=== PATIENT | male | born 1960 | race Two or more races ===

== ENCOUNTER 2018-07-02 03:22 | Inpatient (IN) | payer OTHER ==
[~2018-07-02] VITALS: Ht 172.7 cm; Wt 88.5 kg
[2018-07-02] VITALS (16 sets, daily range): BP systolic 149–189; BP diastolic 85–110
--- NOTE | 2018-07-02 03:27 | NUR ---
ED Nurse Note: Patient GABRIELLA RA 31 from home c/o upper adbominal pain for 5x days that became unbearable 2x hours ago. pt complaining of 10/10 pain on epigastric area. pt denies vomiting, denies hx of copd and asthma. ermd on bedside. pt admitted drug use in the past. pt hooked on monitor with vs within normal limits. will continue to monitor
--- NOTE | 2018-07-02 03:40 | Emergency Room Report ---
History of Present Illness General Chief Complaint: Abdominal Pain Source: Patient Present Illness HPI Is a 58-year-old male with history of methamphetamine abuse. He presents with chief complaint of epigastric abdominal pain. Onset for last 5 days but it was mild. The last few hours became severe. Pain is localized to the upper quadrants. No nausea no vomiting. Pain is 10 out of 10. Worse with movement. Nothing made it better. Nothing made it worse. No diarrhea. No fever. No trauma. Allergies: Coded Allergies: No Known Allergies (Unverified , 07/02/18) Patient History Past Medical History: none, see triage record, old chart reviewed Past Surgical History: none Pertinent Family History: none Social History: Reports: smoking, drug use - Methamphetamine Immunizations: other Reviewed Nursing Documentation: PMH: Agreed; PSxH: Agreed Nursing Documentation-PMH Past Medical History: No History, Except For Hx Hypertension: Yes Review of Systems Eye: Denies: eye pain, blurred vision ENT: Denies: ear pain, nose congestion, throat swelling Respiratory: Denies: cough, shortness of breath Cardiovascular: Denies: chest pain, palpitations Gastrointestinal: Reports: abdominal pain; Denies: diarrhea, vomiting Musculoskeletal: Denies: back pain, joint pain Skin: Denies: rash Neurological: Denies: headache, numbness Endocrine: Denies: increased thirst, increased urine Hematologic/Lymphatic: Denies: easy bruising All Other Systems: negative except mentioned in HPI Physical Exam Vital Signs Date Time Temp Pulse Resp B/P (MAP) Pulse Ox O2 Delivery O2 Flow Rate FiO2 07/02/18 03:23 97.5 94 24 156/93 97 Room Air vitals with high blood pressure Sp02 EP Interpretation: reviewed, normal General Appearance: well appearing, no apparent distress, alert Head: normocephalic, atraumatic Eyes: bilateral eye PERRL, bilateral eye EOMI ENT: hearing grossly normal, normal pharynx Neck: full range of motion, supple, no meningismus Respiratory: chest non-tender, lungs clear, normal breath sounds Cardiovascular #1: regular rate, rhythm, no murmur Gastrointestinal: normal bowel sounds, no mass, no organomegaly, no bruit, non- distended, tenderness - Diffuse Musculoskeletal: back normal, gait/station normal, normal range of motion Psychiatric: mood/affect normal Skin: warm/dry Medical Decision Making Diagnostic Impression: Primary Impression: Perforated gastric ulcer Qualified Codes: K25.1 - Acute gastric ulcer with perforation Additional Impression: Methamphetamine abuse ER Course Patient presents with abdominal pain secondary to perforated gastric ulcer. Antibiotic started. Proton pump inhibitor also given. Vital signs stable. We will admit versus transfer based on insurance. Pt will be admitted here. I contacted Dr. William for admission and Dr. Del Real for surgerical consult. Laboratory Tests Test 07/02/18 03:36 White Blood Count 10.0 K/UL (4.8-10.8) Red Blood Count 5.60 M/UL (4.70-6.10) Hemoglobin 17.1 G/DL (14.2-18.0) Hematocrit 51.4 % (42.0-52.0) Mean Corpuscular Volume 92 FL (80-99) Mean Corpuscular Hemoglobin 30.5 PG (27.0-31.0) Mean Corpuscular Hemoglobin Concent 33.2 G/DL (32.0-36.0) Red Cell Distribution Width 12.6 % (11.6-14.8) Platelet Count 272 K/UL (150-450) Mean Platelet Volume 8.7 FL (6.5-10.1) Neutrophils (%) (Auto) 67.2 % (45.0-75.0) Lymphocytes (%) (Auto) 24.8 % (20.0-45.0) Monocytes (%) (Auto) 6.5 % (1.0-10.0) Eosinophils (%) (Auto) 0.8 % (0.0-3.0) Basophils (%) (Auto) 0.7 % (0.0-2.0) Prothrombin Time 10.2 SEC (9.30-11.50) Prothromb Time International Ratio 1.0 (0.9-1.1) Activated Partial Thromboplast Time 28 SEC (23-33) Sodium Level 138 MMOL/L (136-145) Potassium Level 4.4 MMOL/L (3.5-5.1) Chloride Level 101 MMOL/L (98-107) Carbon Dioxide Level 28 MMOL/L (21-32) Anion Gap 9 mmol/L (5-15) Blood Urea Nitrogen 16 mg/dL (7-18) Creatinine 1.1 MG/DL (0.55-1.30) Estimat Glomerular Filtration Rate > 60 mL/min (>60) Glucose Level 109 MG/DL (74-106) H Calcium Level 9.2 MG/DL (8.5-10.1) Total Bilirubin 0.6 MG/DL (0.2-1.0) Aspartate Amino Transf (AST/SGOT) 32 U/L (15-37) Alanine Aminotransferase (ALT/SGPT) 23 U/L (12-78) Alkaline Phosphatase 86 U/L (46-116) Total Protein 7.7 G/DL (6.4-8.2) Albumin 3.4 G/DL (3.4-5.0) Globulin 4.3 g/dL Albumin/Globulin Ratio 0.8 (1.0-2.7) L Lipase 185 U/L (73-393) Lab Results Impression labs normal Rhythm Strip Diag. Results Rhythm Strip Time: 05:04 EP Interpretation: yes Rate: 88 Rhythm: NSR, no PVC's, no ectopy CT/MRI/US Diagnostic Results CT/MRI/US Diagnostic Results : Imaging Test Ordered: CT abdomen and pelvis Impression Read by radiologist. Inflammatory changes around the gastric antrum suggestive of gastritis. Small foci of intra-abdominal free air from perforation from gastric ulcer. Last Vital Signs Date Time Temp Pulse Resp B/P (MAP) Pulse Ox O2 Delivery O2 Flow Rate FiO2 07/02/18 03:23 97.5 94 24 156/93 97 Room Air Status: improved Disposition: ADMITTED INPATIENT Condition: Serious Scripts Unable to Obtain Active Prescriptions or Reported Meds Referrals: NIVIA MARK,REFERRING (PCP) Joao Wilcox MD Jul 02, 2018 03:40
[2018-07-02] MEDS ORDERED: Morphine Sulfate 4mg/ml Inj (IV/IM USE ONLY) IVP ONE (03:45)
[2018-07-02] MEDS ORDERED: Pantoprazole Inj IV ONE (03:45)
[2018-07-02 03:49] LABS: BASOPHILS % (AUTO) 0.7 % (0.0-2.0); EOSINOPHILS % (AUTO) 0.8 % (0.0-3.0); HEMATOCRIT 51.4 % (42.0-52.0); HEMOGLOBIN 17.1 G/DL (14.2-18.0); LYMPHOCYTES % (AUTO) 24.8 % (20.0-45.0); MEAN CORPUSCULAR VOLUME 92 FL (80-99); MONOCYTES % (AUTO) 6.5 % (1.0-10.0); NEUTROPHILS % (AUTO) 67.2 % (45.0-75.0); PLATELET COUNT 272 K/UL (150-450); RED CELL DISTRIBUTION WIDTH 12.6 % (11.6-14.8)
[2018-07-02 04:04] LABS: ALANINE AMINOTRANSFERASE 23 U/L (12-78); ALBUMIN 3.4 G/DL (3.4-5.0); ALBUMIN/GLOBULIN RATIO 0.8 (1.0-2.7); ALKALINE PHOSPHATASE 86 U/L (46-116); ANION GAP 9 mmol/L (5-15); ASPARTATE AMINO TRANSFERASE 32 U/L (15-37); BILIRUBIN,TOTAL 0.6 MG/DL (0.2-1.0); BLOOD UREA NITROGEN 16 mg/dL (7-18); CALCIUM 9.2 MG/DL (8.5-10.1); CARBON DIOXIDE 28 MMOL/L (21-32); CHLORIDE 101 MMOL/L (98-107); CREATININE 1.1 MG/DL (0.55-1.30); POTASSIUM 4.4 MMOL/L (3.5-5.1); SODIUM 138 MMOL/L (136-145)
--- NOTE | 2018-07-02 04:12 | NUR ---
ED Nurse Note: pt went to ct with tech.
--- NOTE | 2018-07-02 04:20 | NUR ---
ED Nurse Note: pt came back from ct with tech
[2018-07-02] MEDS ORDERED: HYDROmorphone 1mg/ml Carpuject IVP ONE (05:00)
[2018-07-02] MEDS ORDERED: Piperacillin/Tazobactam 3.375 GM in NS 110 ML IVPB ONE (05:00)
[2018-07-02 06:26] LABS: APPEARANCE,URINE CLEAR; BILIRUBIN, URINE NEGATIVE (NEGATIVE); GLUCOSE, URINE (UA) NEGATIVE (NEGATIVE); KETONES,URINE NEGATIVE (NEGATIVE); LEUKOCYTE ESTERASE ,URINE 1+ (NEGATIVE); NITRITE,URINE NEGATIVE (NEGATIVE); PH,URINE 6.5 (4.5-8.0); PROTEIN,URINE 2+ (NEGATIVE); UROBILINOGEN,URINE NORMAL MG/DL (0.0-1.0)
--- NOTE | 2018-07-02 06:37 | NUR ---
ED Nurse Note: pt was admitted in the hospital and is going to or for explore lap, report given to candi serrato.
[2018-07-02 06:51] LABS: COLOR,URINE YELLOW
--- NOTE | 2018-07-02 06:52 | NUR ---
ED Nurse Note: pt transfered to or via gurney picked up by or tech.
[2018-07-02] MEDS ORDERED: LR 1000ml ONE (07:00)
[2018-07-02] MEDS ORDERED: Sterile Water Irrig 1000ml IRRIG ONE (07:00)
[2018-07-02] MEDS ORDERED: NS Irrig 1000ml ONE (07:00)
--- NOTE | 2018-07-02 07:01 | Anethesia Preoperative Eval ---
Anesthesia Pre-op PMH/ROS General Date of Evaluation: Jul 02, 2018 Anesthesiologist: Tawanda ASA Score: ASA 2 - E Mallampati Score Class I : Soft palate, uvula, fauces, pillars visible Class II: Soft palate, uvula, fauces visible Class III: Soft palate, base of uvula visible Class IV: Only hard plate visible Mallampati Classification: Class II Surgeon: Nasima Diagnosis: Perforated gastric ulcer Surgical Procedure: Ex-lap Anesthesia History: none Family History: no anesthesia problems Allergies: Coded Allergies: No Known Allergies (Unverified , 07/02/18) Medications: see eMAR Patient NPO?: Yes NPO Date: Jul 02, 2018 NPO Time: 18:00 Past Medical History Cardiovascular: Reports: HTN; Denies: CAD, CA, valve dz, arrhythmia, other Pulmonary: Denies: asthma, COPD, SHANNON, other Gastrointestinal/Genitourinary: Denies: GERD, CRI, ESRD, other Neurologic/Psychiatric: Denies: dementia, CVA, depression/anxiety, TIA, other Endocrine: Denies: DM, hypothyroidism, steroids, other HEENT: Denies: cataract (L), cataract (R), glaucoma, [place] (L), [place] (R), other Hematology/Immune: Denies: anemia, DVT, bleeding disorder, other Musculoskeletal/Integumentary: Denies: OA, RA, DJD, DDD, edema, other Other: other - methamphetamine use-last used 3 days ago PSxH Narrative: Inguinal hernia repair Anesthesia Pre-op Phys. Exam Physician Exam Last Vital Signs Date Time Temp Pulse Resp B/P (MAP) Pulse Ox O2 Delivery O2 Flow Rate FiO2 07/02/18 06:53 98.0 90 16 149/86 99 Room Air Constitutional: NAD Cardiovascular: RRR Respiratory: CTA Airway Exam Mallampati Score: Class II MO: full ROM: full Teeth: missing - multiple top front, intact Anesthesia Pre-op A/P Labs Hematology Test 07/02/18 03:36 White Blood Count 10.0 K/UL (4.8-10.8) Red Blood Count 5.60 M/UL (4.70-6.10) Hemoglobin 17.1 G/DL (14.2-18.0) Hematocrit 51.4 % (42.0-52.0) Mean Corpuscular Volume 92 FL (80-99) Mean Corpuscular Hemoglobin 30.5 PG (27.0-31.0) Mean Corpuscular Hemoglobin Concent 33.2 G/DL (32.0-36.0) Red Cell Distribution Width 12.6 % (11.6-14.8) Platelet Count 272 K/UL (150-450) Mean Platelet Volume 8.7 FL (6.5-10.1) Neutrophils (%) (Auto) 67.2 % (45.0-75.0) Lymphocytes (%) (Auto) 24.8 % (20.0-45.0) Monocytes (%) (Auto) 6.5 % (1.0-10.0) Eosinophils (%) (Auto) 0.8 % (0.0-3.0) Basophils (%) (Auto) 0.7 % (0.0-2.0) Coagulation Test 07/02/18 03:36 Prothrombin Time 10.2 SEC (9.30-11.50) Prothromb Time International Ratio 1.0 (0.9-1.1) Activated Partial Thromboplast Time 28 SEC (23-33) Chemistry Test 07/02/18 03:36 Sodium Level 138 MMOL/L (136-145) Potassium Level 4.4 MMOL/L (3.5-5.1) Chloride Level 101 MMOL/L (98-107) Carbon Dioxide Level 28 MMOL/L (21-32) Anion Gap 9 mmol/L (5-15) Blood Urea Nitrogen 16 mg/dL (7-18) Creatinine 1.1 MG/DL (0.55-1.30) Estimat Glomerular Filtration Rate > 60 mL/min (>60) Glucose Level 109 MG/DL (74-106) H Calcium Level 9.2 MG/DL (8.5-10.1) Total Bilirubin 0.6 MG/DL (0.2-1.0) Aspartate Amino Transf (AST/SGOT) 32 U/L (15-37) Alanine Aminotransferase (ALT/SGPT) 23 U/L (12-78) Alkaline Phosphatase 86 U/L (46-116) Total Protein 7.7 G/DL (6.4-8.2) Albumin 3.4 G/DL (3.4-5.0) Globulin 4.3 g/dL Albumin/Globulin Ratio 0.8 (1.0-2.7) L Lipase 185 U/L (73-393) Studies Pre-op Studies: EKG - sr Risk Assessment & Plan Assessment: ASA IIE Plan: GA with RSI Status Change Before Surgery: No Pre-Antibiotics Drug: Ancef 2g Given Within 1 Hr of Incision: Yes Eva Ellsworth MD Jul 02, 2018 07:01
[2018-07-02] MEDS ORDERED: LR 1000ml 1,000 ML IVLG SCH (07:16)
--- NOTE | 2018-07-02 07:18 | Pre-Procedure Note/Attestation ---
Pre-Procedure Note/Attestation Complete Prior to Procedure Planned Procedure: not applicable Procedure Narrative: exploratory laparotomy Indications for Procedure Pre-Operative Diagnosis: perforated hollow viscus Attestation I attest that I discussed the nature of the procedure; its benefits; risks and complications; and alternatives (and the risks and benefits of such alternatives ), prior to the procedure, with the patient (or the patient's legal territory service representative). I attest that, if there was a reasonable possibility of needing a blood transfusion, the patient (or the patient's legal territory service representative) was given the [facility] standardized written summary, pursuant to the Dean Olga Lidia Blood Safety Act ([place] Health and Safety Code # 1645, as amended). I attest that I re-evaluated the patient just prior to the surgery and that there has been no change in the patient's H&P, except as documented below: Alo Del Real MD Jul 02, 2018 07:18
[2018-07-02] MEDS ORDERED: Midazolam 2mg/2ml Inj ONE (07:23)
[2018-07-02] MEDS ORDERED: fentaNYL 100 mcg/2 mL IV ONE (07:23)
[2018-07-02] MEDS ORDERED: Lidocaine 1% MPF 10mg/ml 5ml ONE (07:23)
[2018-07-02] MEDS ORDERED: Propofol 200mg/20ml IV ONE (07:23)
[2018-07-02] MEDS ORDERED: Bacitracin 50000 Units Vial ONE (07:29)
[2018-07-02] MEDS ORDERED: NeoSporin Gu Irrig 1ml Amp IRRIG ONE (07:29)
[2018-07-02] MEDS ORDERED: Metoclopramide 10mg/2ml Inj IVP PRN ×3 (07:30→09:00)
[2018-07-02] MEDS ORDERED: fentaNYL 100 mcg/2 mL IV PRN (07:30)
[2018-07-02] MEDS ORDERED: Ketorolac 30mg Inj IV PRN (07:30)
[2018-07-02] MEDS ORDERED: NS Irrig 2000ml IRRIG ONE (07:55)
[2018-07-02] MEDS ORDERED: Glycopyrrolate 0.2mg/ml 1ml Vial ONE (08:32)
[2018-07-02] MEDS ORDERED: Ketorolac 30mg Inj ONE (08:32)
[2018-07-02] MEDS ORDERED: Metoclopramide 10mg/2ml Inj ONE (08:32)
[2018-07-02] MEDS ORDERED: Dexamethasone 4mg/ml vial ONE (08:32)
[2018-07-02] MEDS ORDERED: D5 1/2NS w/KCl 20mEq 1,000 ML IV SCH (08:40)
--- NOTE | 2018-07-02 08:40 | Brief Operative Note ---
Immediate Post Operative Note Operative Note Pre-op Diagnosis: perforated hollow viscus Post-op Diagnosis: perforated duodenal ulcer Post-op Diagnosis: same as pre-op Surgeon: MD Domitila Teaching Dietitian: None Anesthesiologist: Dr. Neff Anesthesia: general Specimen: none Complications: none Condition: stable Fluids: per anesthesialogist Estimated Blood Loss: minimal Drains: other - cullen Implant(s) used?: No Alo Del Real MD Jul 02, 2018 08:40
--- NOTE | 2018-07-02 08:44 | Consultation ---
DATE OF CONSULTATION: 07/02/2018 PREOPERATIVE CONSULTATION CONSULTING PHYSICIAN: Alo Del Real M.D. REQUESTING PHYSICIAN: Emergency room physician. REASON FOR CONSULTATION: Abdominal pain. HISTORY OF PRESENT ILLNESS: This is a 58-year-old male, who presented to emergency room complaining of abdominal pain since 2 o'clock this morning. The pain was located at the epigastrium and upper abdomen. It has been associated with nausea and vomiting. He stated that for four or five days he had mild pain at the upper abdomen and suddenly developed severe pain and he had a normal bowel movement yesterday. PAST MEDICAL HISTORY: He denies allergies, asthma, diabetes, cardiac and renal diseases. He has a history of hypertension. PAST SURGICAL HISTORY: Include right inguinal herniorrhaphy, and incision and drainage of the abscess on the right side of the face. MEDICATIONS: Please see the medicine reconciliation form. SOCIAL HISTORY: The patient is a 58-year-old male, who is single with four children. He smokes a few cigarettes a day, but denies drinking. He has a history of methamphetamine abuse. REVIEW OF SYSTEMS: Noncontributory. PHYSICAL EXAMINATION: GENERAL: The patient appeared to be a well-developed, well-nourished, 58-year-old male, lying on the gurney, complaining of abdominal pain. HEENT: Head is normocephalic and atraumatic. Eyes, pupils are equal, round, and reactive to light. Mouth is clear. NECK: There is no palpable thyromegaly or adenopathy. CHEST: Clear to auscultation and percussion. HEART: There is no gallop or murmur. S1 and S2 are within normal limits. ABDOMEN: Flat with tenderness, rebound tenderness, and guarding at the upper abdomen. Bowel sounds are hypoactive. GENITALIA: Normal. The patient is status post right inguinal herniorrhaphy. EXTREMITIES: Within normal limits. LABORATORY AND IMAGING DATA: CBC is within normal limits. Chemistry is normal. CT scan of the abdomen has been interpreted as perforated hollow viscus with free air in the abdomen probably an ulcer. ASSESSMENT: Acute abdomen due to the perforated hollow viscus. PLAN: The patient has been scheduled for exploratory laparotomy. The risks and benefits have been explained to him. He understood and granted the consent. Alo Del Real M.D. DR: CARLITO JOB#: [id number] CC: NERI
[2018-07-02] MEDS ORDERED: HYDROmorphone 1mg/ml Carpuject IVP PRN (08:45)
[2018-07-02] MEDS ORDERED: Hydromorphone 0.5mg/0.5ml inj IVP PRN ×2 (08:45→09:00)
[2018-07-02] MEDS ORDERED: Acetaminophen 650 MG SUPP RECTAL PRN ×2 (08:45→09:00)
[2018-07-02] MEDS: Midazolam 2mg/2ml Inj IVP PRN ×2 (08:55→09:11)
--- NOTE | 2018-07-02 08:56 | Immediate Post-Op Evaluation ---
Immediate Post-Op Evalulation Immediate Post-Op Evalulation Procedure: Ex-lap Date of Evaluation: Jul 02, 2018 Time of Evaluation: 08:53 IV Fluids: 0 Blood Products: 0 Estimated Blood Loss: 50 Urinary Output: 225 Blood Pressure Systolic: 153 Blood Pressure Diastolic: 85 Pulse Rate: 80 Respiratory Rate: 17 O2 Sat by Pulse Oximetry: 100 Temperature (Fahrenheit): 97.4 Pain Score (1-10): 0 Nausea: No Vomiting: No Complications 0 Patient Status: awake, reacts, patent, none Hydration Status: adequate Drug: Ancef 2g Given Within 1 Hr of Incision: Yes Time Given: 07:20 Eva Ellsworth MD Jul 02, 2018 08:56
[2018-07-02] MEDS ORDERED: Enoxaparin 40mg Inj SUBQ SCH (09:00)
[2018-07-02] MEDS: LORazepam Inj 2mg/ml 1ml IV PRN ×2 (09:04→09:19)
[2018-07-02] MEDS: Hydromorphone 0.5mg/0.5ml inj IVP PRN ×2 (09:06→09:28)
[2018-07-02] MEDS: DiphenhydrAMINE 50mg/ml Inj IVP PRN ×2 (09:21→09:22)
--- NOTE | 2018-07-02 09:47 | Diagnostic Imaging Report ---
Indication: Abdominal pain Technique: Spiral acquisitions obtained through the abdomen and pelvis. No oral contrast utilized, per emergency room physician request No IV contrast utilized, per emergency room physician request.. Multiplanar reconstructions were generated. Total dose length product 818.78 mGycm. CTDIvol(s) 15.47 mGy. Dose reduction achieved using automated exposure control Comparison: None Findings: Bubbles of free intraperitoneal gas are seen adjacent to the left hepatic lobe and caudate lobe of the liver and adjacent to the gallbladder. A few bubbles are seen immediately adjacent to the gastric antrum. There is mild wall thickening and very slight inflammatory change surrounding the gastric antrum. Trace free fluid is seen over the dome of the liver The appendix is normal. There is colonic diverticulosis. No evidence of diverticulitis. There is a small to moderate sliding-type hiatal hernia. The remainder of the stomach is unremarkable. The duodenum is mildly distended with fluid. No small bowel distention. There are small bilateral fat-containing inguinal hernias. Lack of IV contrast limits assessment of the solid organs. The liver, gallbladder, bile ducts, pancreas, spleen are unremarkable. 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 The adrenals and kidneys are unremarkable. No retroperitoneal or mesenteric mass or adenopathy. No pelvic mass or adenopathy. Prostate is somewhat prominent. The included lung bases are clear. The bones demonstrate degenerative spondylosis changes. Impression: Wall thickening and mild inflammatory changes related to the gastric antrum. Bubbles of intraluminal gas are seen adjacent to the gastric antrum as well as trace free fluid. Findings are suggestive of perforated gastric ulcer. Small to moderate sliding-type hiatal hernia Colonic diverticulosis. No evidence of diverticulitis. Calcified 12 mm splenic arterial aneurysm Mild prostatomegaly. Degenerative spondylosis Incidental finding of small fat-containing bilateral inguinal hernias. This agrees with the preliminary interpretation provided overnight by [facility] teleradiology service. The CT scanner at [facility] is accredited by the [employer] and the scans are performed using protocols designed to limit radiation exposure to as low as reasonably achievable to attain images of sufficient resolution adequate for diagnostic evaluation.
--- NOTE | 2018-07-02 11:00 | NUR ---
NURSE NOTES: Received report from RADHA Dennis RN. Pt in bed, asleep, respiration unlabored, on 3l NC, NGT in place at 78 cm connected to low intermitted suction by MARA Dennis, vitals obtained Bp 174/105, HR 103. Vitals are similar to those reported in OR, pt was given Hydralazine in PACU. Will recheck in 30 minutes.
--- NOTE | 2018-07-02 11:28 | NUR ---
NURSE NOTES: Rechecked vitals, BP 166/101 HR 100, SpO2 100% on 3 L NC, RR 16, pt asleep
--- NOTE | 2018-07-02 12:15 | Operative Note - Dictated ---
DATE OF OPERATION: 07/02/2018 PREOPERATIVE DIAGNOSIS: Acute abdomen due to the perforated hollow viscus. POSTOPERATIVE DIAGNOSIS: Perforated duodenal ulcer. OPERATION: Exploratory laparotomy and gastrorrhaphy with Nestor patch. COMPLICATIONS: None. SURGEON: Alo Del Real M.D. EXPLOSIVE ORDNANCE MANAGER: None. ANESTHESIA: General with endotracheal tube. ANESTHESIOLOGIST: Eva Ellsworth M.D. INDICATION: This is a 58-year-old male, who presented to emergency room with acute onset of the abdominal pain since 2 o'clock in the morning. The pain was located at epigastrium associated with nausea and vomiting and the CBC was within normal limits, but the CAT scan was interpreted as microperforation of the ulcer. DESCRIPTION OF PROCEDURE: The patient was placed supine on the operating table and after general anesthesia with endotracheal tube, a midline incision was given above the umbilicus and was carried sharply through subcutaneous tissue, fascia, and peritoneum. The intraperitoneal cavity was entered. The exploration was performed. It was noticed that the patient had a very small perforation at the pylorus. This perforation was repaired with a few interrupted suture of 0 silk. The omentum was anchored over and repaired with Nestor patch. The intra-abdominal cavity was irrigated with antibiotic solution and then a Jose drain was placed under the liver and was brought out from separate stab wound. The incision was approximated with running suture of #0 Vicryl for peritoneum and posterior fascia, #1 Prolene for the fascia, and rm for the skin. The patient tolerated the procedure very well and was transferred to recovery room in stable condition and extubated. The sponge and needle correct. Estimated blood loss was 10 mL. Condition of the patient at the end of procedure was stable. Alo Del Real M.D. DR: ADAM JOB#: [id number] CC: NERI
[2018-07-02] MEDS: Pantoprazole Inj IVP SCH ×2 (12:44→22:08)
[2018-07-02] MEDS: D5 1/2NS w/KCl 20mEq 1,000 ML IV SCH ×2 (12:44→22:09)
[2018-07-02] MEDS: Enoxaparin 40mg Inj SUBQ SCH (12:46)
[2018-07-02] MEDS ORDERED: ceFAZolin sod 2 GM in D5W 110 ML IV SCH (14:00)
[2018-07-02] MEDS: ceFAZolin sod 1 GM in D5W 55 ML IV SCH ×2 (16:02→23:48)
--- NOTE | 2018-07-02 18:13 | NUR ---
NURSE NOTES: Gave pt clonidine 0.1mg SL for SBP >150, Rechecked pt 172/99, Notified Dr. William. Dr. William ordered to give additional dose.
--- NOTE | 2018-07-02 19:20 | NUR ---
HAND-OFF: Report given to MARA Tan. Pt stable.
[2018-07-02] MEDS ORDERED: Flu Vaccine (Alfuria) for Pts Less than 65 Years old IM ONE (20:00)
[2018-07-02] MEDS ORDERED: Pneumococcal Vaccine 25mcg/0.5ml IM ONE (20:00)
--- NOTE | 2018-07-02 20:21 | NUR ---
HAND-OFF: Report given to Na Owens patient in stable condition ..
--- NOTE | 2018-07-02 20:30 | NUR ---
NURSE NOTES: Pt lying in bed w/bed in lowest position and call light within reach. Pt A&Ox4, VSS, and in no apparent distress at this time. IV site intact/asymptomatic w/IVF @ 100 ml/hr; surgical dressing C/D/I; ARASH drain to bulb suction; and GT to low/int suction. Pt has yet to void since FC was removed earlier today; encouraged pt to try to void. Will continue to monitor.
--- NOTE | 2018-07-02 20:45 | NUR ---
NURSE NOTES: Per pt, he takes BP med but cannot recall name of medication. States he will ask roommate to bring in tomorrow in the AM. Will endorse to oncoming nurse.
--- NOTE | 2018-07-02 21:10 | NUR ---
CASE MANAGEMENT: REVIEW 58/M BIBA FROM HOME CC: ABD PAIN SI: PERFORATED DUODENAL ULCER EXPLORATORY LAPAROTOMY AND GASTRORRHAPHY WITH SUSANNAH PATCH 07/02 T 98.0 HR 103 RR 16 BP 174/105 SAT 98% ROOM AIR UA: PROTEIN 2+ BLOOD 4+ LEUKOCYTE 1+ RBC 20-30 IS: NS IVF BOLUS X1 MORPHINE IV X1 DILAUDID IV X1 LACTATED RINGER'S IVF BOLUS X1 VERSED IV X1 INTERQUAL CRITERIA MET: PATIENT ADMITTED TO MED/SURG UNIT 07/02/2018 DCP: PATIENT IS FROM HOME
--- NOTE | 2018-07-02 23:45 | NUR ---
NURSE NOTES: Pt unable to void on his own; performed straight cath per Dr. William which yielded about 500 ml of yellow urine; post-void residual 0 ml per bladder scan. Will continue to monitor.
[2018-07-03] VITALS (7 sets, daily range): BP systolic 145–182; BP diastolic 82–110
--- NOTE | 2018-07-03 02:30 | NUR ---
NURSE NOTES: Pt successfully voided about 350 ml of yellow urine. Will continue monitor.
[2018-07-03] MEDS: HYDROmorphone 1mg/ml Carpuject IVP PRN ×2 (02:42→08:48)
[2018-07-03 07:19] LABS: BASOPHILS % (AUTO) 0.3 % (0.0-2.0); EOSINOPHILS % (AUTO) 0.2 % (0.0-3.0); HEMOGLOBIN 14.2 G/DL (14.2-18.0); LYMPHOCYTES % (AUTO) 13.5 % (20.0-45.0); MEAN CORPUSCULAR VOLUME 92 FL (80-99); MONOCYTES % (AUTO) 5.9 % (1.0-10.0); NEUTROPHILS % (AUTO) 80.2 % (45.0-75.0); PLATELET COUNT 240 K/UL (150-450); RED BLOOD COUNT 4.55 M/UL (4.70-6.10); RED CELL DISTRIBUTION WIDTH 12.8 % (11.6-14.8); WHITE BLOOD COUNT 13.4 K/UL (4.8-10.8)
--- NOTE | 2018-07-03 07:23 | NUR ---
HAND-OFF: Report given to MARA Whitney. Endorsed nitro paste order for elevated BP.
[2018-07-03] MEDS ORDERED: Nitroglycerin 2% oint pkt TOPIC SCH (07:30)
[2018-07-03] MEDS: D5 1/2NS w/KCl 20mEq 1,000 ML IV SCH ×3 (07:38→17:58)
--- NOTE | 2018-07-03 07:40 | NUR ---
NURSE NOTES: AWAKE/ALERT. PAIN SCALE 5/10. ABDOMINAL DRESSING DRY AND INTACT. NPO MAINTINED. WITH NGT TO LIS WITH BROWNISH GASTRIC LIQUID. BP 187/110 P82. NITROBID 1 INCH APPLIED TO CHEST AREA. WILL MONITOR PT'S BP. PT IN NO DISTRESS.
[2018-07-03 08:11] LABS: ANION GAP 7 mmol/L (5-15); BLOOD UREA NITROGEN 9 mg/dL (7-18); CALCIUM 8.1 MG/DL (8.5-10.1); CARBON DIOXIDE 28 MMOL/L (21-32); CHLORIDE 103 MMOL/L (98-107); CREATININE 0.8 MG/DL (0.55-1.30); POTASSIUM 3.5 MMOL/L (3.5-5.1); SODIUM 138 MMOL/L (136-145)
[2018-07-03] MEDS: Pantoprazole Inj IVP SCH ×2 (08:38→21:02)
[2018-07-03] MEDS: Enoxaparin 40mg Inj SUBQ SCH (08:43)
--- NOTE | 2018-07-03 10:00 | NUR ---
NURSE NOTES: bp rechecked 159/95.p 89
--- NOTE | 2018-07-03 10:07 | NUR ---
NURSE NOTES: BP RECHECKED 159/95,P89. ASSISTED OOB INSTRUCTED TO DO DEEP BREATHING. UP IN CHAIR FOR FEW MINUTES. C/O SEVERE PAIN. ASSISTED BACK TO BED. MADE COMFORTABLE.
--- NOTE | 2018-07-03 10:12 | 48 Hour Post Anesthesia Eval ---
Post Anesthesia Evaluation Procedure: Ex-lap Date of Evaluation: Jul 03, 2018 Time of Evaluation: 10:10 Blood Pressure Systolic: 158 0: 75 Pulse Rate: 82 Respiratory Rate: 24 Temperature (Fahrenheit): 97.6 O2 Sat by Pulse Oximetry: 98 Airway: patent Nausea: No - N/G tube in plce on suction Vomiting: No Pain Intensity: 3 Hydration Status: adequate Cardiopulmonary Status: stable Mental Status/LOC: patient returned to baseline Follow-up Care/Observations: n/a Post-Anesthesia Complications: none Follow-up care needed: N/A Gallo Valderrama MD Jul 03, 2018 10:12
[2018-07-03] MEDS: Nitroglycerin 2% oint pkt TOPIC SCH ×2 (12:02→17:56)
--- NOTE | 2018-07-03 12:21 | General Surgery Progress Note ---
General Surgery-Progress Note Objective Last 24 Hour Vital Signs Date Time Temp Pulse Resp B/P (MAP) Pulse Ox O2 Delivery O2 Flow Rate FiO2 07/03/18 12:02 145/95 07/03/18 10:12 82 24 98 07/03/18 10:00 95 159/95 (116) 07/03/18 09:18 98.4 07/03/18 08:15 Room Air 07/03/18 08:00 98.2 82 18 182/110 (134) 98 07/03/18 07:38 187/110 07/03/18 04:31 98.4 93 19 170/89 (116) 96 07/03/18 04:17 170/89 07/03/18 00:29 98.5 85 18 163/94 (117) 98 07/02/18 22:23 162/92 07/02/18 21:00 Room Air 07/02/18 20:53 98.4 88 18 162/92 (115) 97 07/02/18 18:25 172/99 07/02/18 18:12 172/99 (123) 07/02/18 17:21 156/95 07/02/18 16:00 99.1 100 18 156/95 (115) 98 I&O Intake and Output 07/02/18 07/03/18 19:00 07:00 Intake Total 3985 ml 705 ml Output Total 2005 ml 800 ml Balance 1980 ml -95 ml Intake IV Total 3985 ml 705 ml Output Urine Total 1825 ml 800 ml Drainage Total 30 ml Estimated Blood Loss 50 ml Other 100 ml Dressing: dry Drains: cullen Respiratory: clear Abdomen: soft, flat, tenderness, absent bowel sounds Extremities: no tenderness Laboratory Tests Test 07/03/18 06:40 White Blood Count 13.4 K/UL (4.8-10.8) H Red Blood Count 4.55 M/UL (4.70-6.10) L Hemoglobin 14.2 G/DL (14.2-18.0) Hematocrit 42.0 % (42.0-52.0) Mean Corpuscular Volume 92 FL (80-99) Mean Corpuscular Hemoglobin 31.1 PG (27.0-31.0) H Mean Corpuscular Hemoglobin Concent 33.7 G/DL (32.0-36.0) Red Cell Distribution Width 12.8 % (11.6-14.8) Platelet Count 240 K/UL (150-450) Mean Platelet Volume 9.0 FL (6.5-10.1) Neutrophils (%) (Auto) 80.2 % (45.0-75.0) H Lymphocytes (%) (Auto) 13.5 % (20.0-45.0) L Monocytes (%) (Auto) 5.9 % (1.0-10.0) Eosinophils (%) (Auto) 0.2 % (0.0-3.0) Basophils (%) (Auto) 0.3 % (0.0-2.0) Sodium Level 138 MMOL/L (136-145) Potassium Level 3.5 MMOL/L (3.5-5.1) Chloride Level 103 MMOL/L (98-107) Carbon Dioxide Level 28 MMOL/L (21-32) Anion Gap 7 mmol/L (5-15) Blood Urea Nitrogen 9 mg/dL (7-18) Creatinine 0.8 MG/DL (0.55-1.30) Estimat Glomerular Filtration Rate > 60 mL/min (>60) Glucose Level 99 MG/DL (74-106) Calcium Level 8.1 MG/DL (8.5-10.1) L Assessment Post-op Diagnosis perforated duodenal ulcer Plan Additional Comments continue as before Alo Del Real MD Jul 03, 2018 12:21
--- NOTE | 2018-07-03 13:02 | NUR ---
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 98.2 HR 82 RR 18 B/P 182/110 IS: IVF D5KCL @ 100ML/HR PROTONIX IV LOVENOX SUBC MED/SURG STATUS
--- NOTE | 2018-07-03 13:34 | History & Physical ---
History and Physical History & Physicial History and Physical Chief Complaint: Abdominal Pain, s/p Ex Lap for Perforated HPI Patient is a 58-year-old male with history of methamphetamine abuse. He presents with chief complaint of epigastric abdominal pain. 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 No diarrhea. No fever. No trauma. Allergies: No Known Allergies Past Medical History: Hypertension Past Surgical History: none Pertinent Family History: none Social History: Reports: smoking, drug use - Methamphetamine Immunizations: other Reviewed Nursing Documentation: PMH: Agreed; PSxH: Agreed Nursing Documentation-PMH Past Medical History: No History, Except For Hx Hypertension: Yes Review of Systems: negative except mentioned in HPI Physical Exam Vital Signs Noted General Appearance: well appearing, no apparent distress, alert Head: normocephalic, atraumatic Eyes: bilateral eye PERRL, bilateral eye EOMI ENT: hearing grossly normal, normal pharynx Neck: full range of motion, supple, no meningismus Respiratory: chest non-tender, lungs clear, normal breath sounds Cardiovascular #1: regular rate, rhythm, no murmur Gastrointestinal: normal bowel sounds, no mass, no organomegaly, abdominal wounds dressed, minimal tenderness Musculoskeletal: back normal, gait/station normal, normal range of motion Psychiatric: mood/affect normal Skin: warm/dry Impression: Perforated gastric ulcer S/p Ex Lap H/o Hypertension Methamphetamine abuse Plan Continue current post operative care Antibiotics PPX Advance diet per Surgical Team Incentive spirometer Mobilization Laboratory Tests Test 07/02/18 03:36 White Blood Count 10.0 K/UL (4.8-10.8) Red Blood Count 5.60 M/UL (4.70-6.10) Hemoglobin 17.1 G/DL (14.2-18.0) Hematocrit 51.4 % (42.0-52.0) Mean Corpuscular Volume 92 FL (80-99) Mean Corpuscular Hemoglobin 30.5 PG (27.0-31.0) Mean Corpuscular Hemoglobin Concent 33.2 G/DL (32.0-36.0) Red Cell Distribution Width 12.6 % (11.6-14.8) Platelet Count 272 K/UL (150-450) Mean Platelet Volume 8.7 FL (6.5-10.1) Neutrophils (%) (Auto) 67.2 % (45.0-75.0) Lymphocytes (%) (Auto) 24.8 % (20.0-45.0) Monocytes (%) (Auto) 6.5 % (1.0-10.0) Eosinophils (%) (Auto) 0.8 % (0.0-3.0) Basophils (%) (Auto) 0.7 % (0.0-2.0) Prothrombin Time 10.2 SEC (9.30-11.50) Prothromb Time International Ratio 1.0 (0.9-1.1) Activated Partial Thromboplast Time 28 SEC (23-33) Sodium Level 138 MMOL/L (136-145) Potassium Level 4.4 MMOL/L (3.5-5.1) Chloride Level 101 MMOL/L (98-107) Carbon Dioxide Level 28 MMOL/L (21-32) Anion Gap 9 mmol/L (5-15) Blood Urea Nitrogen 16 mg/dL (7-18) Creatinine 1.1 MG/DL (0.55-1.30) Estimat Glomerular Filtration Rate > 60 mL/min (>60) Glucose Level 109 MG/DL (74-106) H Calcium Level 9.2 MG/DL (8.5-10.1) Total Bilirubin 0.6 MG/DL (0.2-1.0) Aspartate Amino Transf (AST/SGOT) 32 U/L (15-37) Alanine Aminotransferase (ALT/SGPT) 23 U/L (12-78) Alkaline Phosphatase 86 U/L (46-116) Total Protein 7.7 G/DL (6.4-8.2) Albumin 3.4 G/DL (3.4-5.0) Globulin 4.3 g/dL Albumin/Globulin Ratio 0.8 (1.0-2.7) L Lipase 185 U/L (73-393) CT abdomen and pelvis Inflammatory changes around the gastric antrum suggestive of gastritis. Small foci of intra-abdominal free air from perforation from gastric ulcer. Chivo Kaplan MD Jul 03, 2018 13:34
--- NOTE | 2018-07-03 17:33 | NUR ---
NURSE NOTES: ASSISTED OOB TO CHAIR. ENCOURAGED TO DO DEEP BRETHING AND USE OF I/S. CALL LIGHT ON REACH. INSTRUCTION TO CALL IF NEEDED HELP TO GO BACK TO BED.
--- NOTE | 2018-07-03 19:00 | NUR ---
NURSE NOTES: resting in bed. in no acute distress.
--- NOTE | 2018-07-03 19:20 | NUR ---
HAND-OFF: Report given to aniceto charles rn.
--- NOTE | 2018-07-03 19:25 | NUR ---
NURSE NOTES: Received patient report from Chelo TERRY. Patient is in bed resting at this time appearing to be in no distress at this time. Post procedure abdominal site with dressing clean and intact, NG tube set to low suction. Patient does not verbalize any pain or discomfort at this time. Bed is in lowest position with call light within reach. Will continue to monitor and follow plan of care.
[2018-07-04] VITALS (7 sets, daily range): BP systolic 137–163; BP diastolic 83–98
[2018-07-04] MEDS: D5 1/2NS w/KCl 20mEq 1,000 ML IV SCH ×3 (04:00→23:04)
[2018-07-04] MEDS: Nitroglycerin 2% oint pkt TOPIC SCH ×3 (06:30→18:45)
[2018-07-04 07:07] LABS: ANION GAP 7 mmol/L (5-15); BLOOD UREA NITROGEN 7 mg/dL (7-18); CALCIUM 8.2 MG/DL (8.5-10.1); CARBON DIOXIDE 27 MMOL/L (21-32); CHLORIDE 102 MMOL/L (98-107); CREATININE 0.7 MG/DL (0.55-1.30); POTASSIUM 3.8 MMOL/L (3.5-5.1); SODIUM 136 MMOL/L (136-145)
[2018-07-04 07:37] LABS: BASOPHILS % (AUTO) 0.4 % (0.0-2.0); EOSINOPHILS % (AUTO) 0.9 % (0.0-3.0); HEMATOCRIT 38.7 % (42.0-52.0); HEMOGLOBIN 13.2 G/DL (14.2-18.0); LYMPHOCYTES % (AUTO) 11.5 % (20.0-45.0); MEAN CORPUSCULAR VOLUME 93 FL (80-99); MONOCYTES % (AUTO) 8.5 % (1.0-10.0); NEUTROPHILS % (AUTO) 78.8 % (45.0-75.0); PLATELET COUNT 217 K/UL (150-450); RED BLOOD COUNT 4.17 M/UL (4.70-6.10); RED CELL DISTRIBUTION WIDTH 12.9 % (11.6-14.8); WHITE BLOOD COUNT 10.7 K/UL (4.8-10.8)
--- NOTE | 2018-07-04 07:49 | NUR ---
NURSE NOTES: Received patient in bed awake and able to verbalize needs. Stable with no s/s acute distress or SOB. Denies pain at this time. Patient has NG tube with low suction. Patient comfortable in bed with call light within reach, all needs met at this time. WIll continue to monitor.
--- NOTE | 2018-07-04 07:57 | NUR ---
HAND-OFF: Report given to Jenae TERRY.
--- NOTE | 2018-07-04 08:21 | General Progress Note ---
Assessment/Plan Assessment/Plan Perforated duodenal ulcer. Exploratory laparotomy and gastrorrhaphy with Nestor patch. PLAN 1. incentive spirometry 2. SCD 3. advance diet per surgery 4. Hydration 5. Pain management 6. discharge once stable with outpatient follow up Subjective Allergies: Coded Allergies: No Known Allergies (Unverified , 07/02/18) Subjective post op care noted Objective Last 24 Hour Vital Signs Date Time Temp Pulse Resp B/P (MAP) Pulse Ox O2 Delivery O2 Flow Rate FiO2 07/04/18 07:12 160/98 07/04/18 06:30 160/98 07/04/18 04:00 98.8 96 18 160/98 (118) 95 07/04/18 00:00 97.8 95 19 159/97 (117) 97 07/03/18 21:00 Room Air 07/03/18 20:00 98.1 87 19 158/94 (115) 97 07/03/18 17:56 150/82 07/03/18 17:05 98.0 07/03/18 16:00 98.0 89 20 150/82 (104) 96 07/03/18 12:02 145/95 07/03/18 12:00 98.3 106 18 145/95 (112) 07/03/18 10:12 82 24 98 07/03/18 10:00 95 159/95 (116) 07/03/18 09:18 98.4 Intake and Output 07/03/18 07/04/18 18:59 06:59 Intake Total 1050 ml 460 ml Output Total 1440 ml 1150 ml Balance -390 ml -690 ml Intake Oral 360 ml IV Total 1050 ml 100 ml Output Urine Total 1050 ml 825 ml Gastric Drainage Total 350 ml Drainage Total 40 ml 25 ml Other 300 ml # Voids 2 Laboratory Tests 07/04/18 05:30: White Blood Count 10.7, Red Blood Count 4.17L, Hemoglobin 13.2L, Hematocrit 38.7L, Mean Corpuscular Volume 93, Mean Corpuscular Hemoglobin 31.6H, Mean Corpuscular Hemoglobin Concent 34.0, Red Cell Distribution Width 12.9, Platelet Count 217, Mean Platelet Volume 9.2, Neutrophils (%) (Auto) 78.8H, Lymphocytes ( %) (Auto) 11.5L, Monocytes (%) (Auto) 8.5, Eosinophils (%) (Auto) 0.9, Basophils (%) (Auto) 0.4, Sodium Level 136, Potassium Level 3.8, Chloride Level 102, Carbon Dioxide Level 27, Anion Gap 7, Blood Urea Nitrogen 7, Creatinine 0.7 , Estimat Glomerular Filtration Rate > 60, Glucose Level 102, Calcium Level 8.2L Height (Feet): 5 Height (Inches): 8.00 Weight (Pounds): 195 Objective WDWN NAD clear breath sounds bilaterally without rhonchi or wheeze [id number] without MRG tender abdomen no CCE nonfocal Arash William MD Jul 04, 2018 08:21
--- NOTE | 2018-07-04 09:00 | NUR ---
NURSE NOTES: Patient is in bed awake and able to verbalize needs. Patient pulled out ng tube. Reinserted ng tube and checked placement, tolerated well. NG tube connected to low, intermittent suction. Will continue to monitor.
[2018-07-04] MEDS: Enoxaparin 40mg Inj SUBQ SCH (09:05)
[2018-07-04] MEDS: Pantoprazole Inj IVP SCH ×2 (09:05→20:48)
--- NOTE | 2018-07-04 11:45 | NUR ---
NURSE NOTES: Patient ambulated with RN assistance without complication. Tolerated well.
[2018-07-04] MEDS: HYDROmorphone 1mg/ml Carpuject IVP PRN ×2 (11:59→22:11)
--- NOTE | 2018-07-04 14:55 | General Surgery Progress Note ---
General Surgery-Progress Note Subjective Symptoms: improved Objective Last 24 Hour Vital Signs Date Time Temp Pulse Resp B/P (MAP) Pulse Ox O2 Delivery O2 Flow Rate FiO2 07/04/18 12:00 98.7 100 20 137/83 (101) 97 07/04/18 11:58 149/91 07/04/18 09:00 Room Air 07/04/18 08:00 99.1 99 20 149/91 (110) 96 07/04/18 07:12 160/98 07/04/18 06:30 160/98 07/04/18 04:00 98.8 96 18 160/98 (118) 95 07/04/18 00:00 97.8 95 19 159/97 (117) 97 07/03/18 21:00 Room Air 07/03/18 20:00 98.1 87 19 158/94 (115) 97 07/03/18 17:56 150/82 07/03/18 17:05 98.0 07/03/18 16:00 98.0 89 20 150/82 (104) 96 I&O Intake and Output 07/03/18 07/04/18 19:00 07:00 Intake Total 1050 ml 360 ml Output Total 1440 ml 1150 ml Balance -390 ml -790 ml Intake Oral 360 ml IV Total 1050 ml Output Urine Total 1050 ml 825 ml Gastric Drainage Total 350 ml Drainage Total 40 ml 25 ml Other 300 ml # Voids 2 Dressing: dry Drains: cullen Respiratory: clear Abdomen: soft, flat, absent bowel sounds Extremities: no tenderness Laboratory Tests Test 07/04/18 05:30 White Blood Count 10.7 K/UL (4.8-10.8) Red Blood Count 4.17 M/UL (4.70-6.10) L Hemoglobin 13.2 G/DL (14.2-18.0) L Hematocrit 38.7 % (42.0-52.0) L Mean Corpuscular Volume 93 FL (80-99) Mean Corpuscular Hemoglobin 31.6 PG (27.0-31.0) H Mean Corpuscular Hemoglobin Concent 34.0 G/DL (32.0-36.0) Red Cell Distribution Width 12.9 % (11.6-14.8) Platelet Count 217 K/UL (150-450) Mean Platelet Volume 9.2 FL (6.5-10.1) Neutrophils (%) (Auto) 78.8 % (45.0-75.0) H Lymphocytes (%) (Auto) 11.5 % (20.0-45.0) L Monocytes (%) (Auto) 8.5 % (1.0-10.0) Eosinophils (%) (Auto) 0.9 % (0.0-3.0) Basophils (%) (Auto) 0.4 % (0.0-2.0) Sodium Level 136 MMOL/L (136-145) Potassium Level 3.8 MMOL/L (3.5-5.1) Chloride Level 102 MMOL/L (98-107) Carbon Dioxide Level 27 MMOL/L (21-32) Anion Gap 7 mmol/L (5-15) Blood Urea Nitrogen 7 mg/dL (7-18) Creatinine 0.7 MG/DL (0.55-1.30) Estimat Glomerular Filtration Rate > 60 mL/min (>60) Glucose Level 102 MG/DL (74-106) Calcium Level 8.2 MG/DL (8.5-10.1) L Assessment Post-op Diagnosis perforated duodenal ulcer Plan Additional Comments continue as before Alo Del Real MD Jul 04, 2018 14:55
[2018-07-04] MEDS: Piperacillin/Tazobactam 3.375 GM in D5W 110 ML IVPB SCH ×2 (16:30→20:48)
--- NOTE | 2018-07-04 17:05 | NUR ---
*-* INSURANCE*-* ALL CLINICALS AND REVIEWS HAVE BEEN FAXED TOz: LIZABETH/JACKELYN P- [phone] F- [phone]
--- NOTE | 2018-07-04 20:00 | NUR ---
NURSE NOTES: Received pt from Charge Nurse. Pt asleep. Bed in lowest position. Call light within reach. ARASH drain and NG tube intact and draining. IV site intact but reddened at puffy. Will input a new site. Will continue to monitor.
--- NOTE | 2018-07-04 20:32 | NUR ---
HAND-OFF: Report given to Taisha TERRY. Patient is stable.
--- NOTE | 2018-07-04 22:30 | Consultation ---
DATE OF CONSULTATION: 07/04/2018 INFECTIOUS DISEASE CONSULTATION CONSULTING PHYSICIAN: Navid Lisa M.D. PRIMARY SURGEON: Alo Del Real M.D. REASON FOR CONSULT: Perforated peptic ulcer peritonitis. HISTORY OF PRESENT ILLNESS: A 58-year-old male, admitted on 07/02/2018 from home complaining of epigastric abdominal pain, 10/10. The patient has started having pain 3 to 4 days before admission, but suddenly increased. The patient was admitted to the hospital. Had nausea and vomiting. At the time of admission, the patient was found to have perforated gastric ulcer on CT scan of the abdomen and pelvis. He went to OR on 07/02/2018 and had gastrorrhaphy and gastric Nestor patch. PAST MEDICAL HISTORY: Significant for hypertension. ALLERGIES: No known drug allergies. MEDICATIONS: Nitroglycerin, was on cefazolin postoperatively, Zofran, metoclopramide x1, got a dose of Zosyn at the time of admission, hydralazine, and diphenhydramine. SOCIAL HISTORY: He is single, smokes half a pack of cigarettes daily, uses methamphetamine. Denies drinking alcohol. REVIEW OF SYSTEMS: Currently, the patient is better. He feels better. No significant pain. He is NPO. He has no urinary problem. He had no coughing. PHYSICAL EXAMINATION: VITAL SIGNS: Temperature 98.7, pulse 100, and blood pressure 137/83. GENERAL APPEARANCE: No acute distress. Awake, alert, and oriented x3. HEAD AND NECK: NG tube. HEART: S1 and S2 regular. LUNGS: Clear. ABDOMEN: NG tube connected to suction. Surgical drain and midline dressing. EXTREMITIES: Has no edema. LABORATORY AND DIAGNOSTIC DATA: WBC 10.7, hemoglobin 13.2, hematocrit 38.7, and platelets 270. Sodium 136, potassium 3.8, chloride 102, bicarbonate 27, BUN 7, creatinine 0.7, and glucose is 102. CT scan of the abdomen and pelvis showed perforated peptic ulcer, colonic diverticulosis, mild prostatomegaly. IMPRESSION: Perforated peptic ulcer likely with peritonitis. The patient has also diverticulosis, hypertension, nicotine abuse, and amphetamine abuse. RECOMMENDATION: We will continue with Zosyn for a few days. At the end of my exam, I thank Dr. Del Real for involving me in the care of this patient. Navid Lisa M.D. DR: SILAS JOB#: [id number] CC:
[2018-07-05] VITALS: BP 143/88
[2018-07-05 04:00] VITALS: BP 149/84
[2018-07-05] MEDS: Piperacillin/Tazobactam 3.375 GM in D5W 110 ML IVPB SCH ×3 (05:59→21:51)
[2018-07-05] MEDS: HYDROmorphone 1mg/ml Carpuject IVP PRN (05:59)
[2018-07-05] MEDS: Nitroglycerin 2% oint pkt TOPIC SCH ×3 (05:59→18:07)
[2018-07-05 07:04] LABS: ANION GAP 10 mmol/L (5-15); BLOOD UREA NITROGEN 9 mg/dL (7-18); CALCIUM 8.6 MG/DL (8.5-10.1); CARBON DIOXIDE 27 MMOL/L (21-32); CHLORIDE 103 MMOL/L (98-107); CREATININE 0.8 MG/DL (0.55-1.30); POTASSIUM 4.2 MMOL/L (3.5-5.1); SODIUM 139 MMOL/L (136-145)
[2018-07-05 07:15] LABS: BASOPHILS % (AUTO) 0.4 % (0.0-2.0); EOSINOPHILS % (AUTO) 1.1 % (0.0-3.0); HEMATOCRIT 39.5 % (42.0-52.0); HEMOGLOBIN 13.3 G/DL (14.2-18.0); LYMPHOCYTES % (AUTO) 13.9 % (20.0-45.0); MEAN CORPUSCULAR VOLUME 92 FL (80-99); MONOCYTES % (AUTO) 9.5 % (1.0-10.0); PLATELET COUNT 206 K/UL (150-450); RED BLOOD COUNT 4.28 M/UL (4.70-6.10); RED CELL DISTRIBUTION WIDTH 12.6 % (11.6-14.8); WHITE BLOOD COUNT 7.8 K/UL (4.8-10.8)
--- NOTE | 2018-07-05 07:52 | NUR ---
HAND-OFF: Report given to MARA Arriola. Pt stable.
[2018-07-05 08:00] VITALS: BP 157/94
--- NOTE | 2018-07-05 08:00 | NUR ---
NURSE NOTES: Received report from Taisha TERRY. On rounds patient is awake alert and oriented x4, no s/s acute distress noted. NGT to low intermittent suction. LAC IV running Zosyn per order. Patient reporting no pain at this time. Abdominal dressing assessed c/d/i. ARASH to bulb suction. Side rails upx2, bed low and locked, call light in reach. Will continue to monitor.
--- NOTE | 2018-07-05 09:03 | NUR ---
RD ASSESSMENT & RECOMMENDATIONS SEE CARE ACTIVITY FOR COMPLETE ASSESSMENT DAILY ESTIMATED NEEDS: Needs based on Surgery, cardiac 74.7kg adj 25-30 kcals/kg 0652-6782 total kcals 1-2 g protein/kg 75-149 g total protein 25-30 mL/kg 7093-8657 total fluid mLs NUTRITION DIAGNOSIS: Altered GI fxn r/t perforated gastric ulcer as evidenced by s/p ex lap w/ abel patch repair, pt w/ NGT to LIS, NPO at this time. CURRENT DIET: NPO, NGT to LIS PO DIET RECOMMENDATIONS: Advance to Clear Liquid Diet as medically able w/ Ensure Clear TID ADDITIONAL RECOMMENDATIONS: 1) Obtain a standing weight as able 2) Advance diet to -> Low Na/ [place] 3) Monitor lytes daily, replete as needed
[2018-07-05] MEDS: Enoxaparin 40mg Inj SUBQ SCH (09:31)
[2018-07-05] MEDS: Pantoprazole Inj IVP SCH ×2 (09:32→21:51)
[2018-07-05] MEDS: D5 1/2NS w/KCl 20mEq 1,000 ML IV SCH ×2 (10:48→21:51)
[2018-07-05 12:00] VITALS: BP 130/83
--- NOTE | 2018-07-05 12:14 | General Progress Note ---
Assessment/Plan Assessment/Plan Perforated duodenal ulcer. Exploratory laparotomy and gastrorrhaphy with Nestor patch. PLAN 1. incentive spirometry 2. SCD 3. advance diet per surgery 4. Hydration 5. Pain management 6. discharge once stable with outpatient follow up Subjective Allergies: Coded Allergies: No Known Allergies (Unverified , 07/02/18) Subjective post op care noted wants to eat Objective Last 24 Hour Vital Signs Date Time Temp Pulse Resp B/P (MAP) Pulse Ox O2 Delivery O2 Flow Rate FiO2 07/05/18 09:00 Room Air 07/05/18 08:00 99.2 89 19 157/94 (115) 98 07/05/18 05:59 149/84 07/05/18 04:00 97.5 95 19 149/84 (105) 95 07/05/18 00:00 97.7 93 19 143/88 (106) 94 07/04/18 22:05 85 146/88 (107) 96 07/04/18 21:00 Room Air 07/04/18 20:00 98.3 100 19 154/88 (110) 93 07/04/18 18:45 147/87 07/04/18 16:00 97.8 97 19 163/96 (118) 96 07/04/18 15:12 178/106 Intake and Output 07/04/18 07/05/18 18:59 06:59 Intake Total 200 ml Output Total 850 ml 550 ml Balance -650 ml -550 ml IV Total 200 ml Output Urine Total 850 ml 550 ml # Voids 2 Laboratory Tests 07/05/18 05:20: White Blood Count 7.8, Red Blood Count 4.28L, Hemoglobin 13.3L, Hematocrit 39.5L , Mean Corpuscular Volume 92, Mean Corpuscular Hemoglobin 31.0, Mean Corpuscular Hemoglobin Concent 33.5, Red Cell Distribution Width 12.6, Platelet Count 206, Mean Platelet Volume 9.2, Neutrophils (%) (Auto) 75.0, Lymphocytes (% ) (Auto) 13.9L, Monocytes (%) (Auto) 9.5, Eosinophils (%) (Auto) 1.1, Basophils (%) (Auto) 0.4, Sodium Level 139, Potassium Level 4.2, Chloride Level 103, Carbon Dioxide Level 27, Anion Gap 10, Blood Urea Nitrogen 9, Creatinine 0.8, Estimat Glomerular Filtration Rate > 60, Glucose Level 96, Calcium Level 8.6 Height (Feet): 5 Height (Inches): 8.00 Weight (Pounds): 195 Objective WDWN NAD clear breath sounds bilaterally without rhonchi or wheeze [id number] without MRG some bowel sounds no CCE nonfocal Arash William MD Jul 05, 2018 12:14
--- NOTE | 2018-07-05 13:58 | General Surgery Progress Note ---
General Surgery-Progress Note Subjective Symptoms: improved, pain absent Objective Last 24 Hour Vital Signs Date Time Temp Pulse Resp B/P (MAP) Pulse Ox O2 Delivery O2 Flow Rate FiO2 07/05/18 12:27 130/83 07/05/18 12:00 99.5 89 20 130/83 (99) 96 07/05/18 09:00 Room Air 07/05/18 08:00 99.2 89 19 157/94 (115) 98 07/05/18 05:59 149/84 07/05/18 04:00 97.5 95 19 149/84 (105) 95 07/05/18 00:00 97.7 93 19 143/88 (106) 94 07/04/18 22:05 85 146/88 (107) 96 07/04/18 21:00 Room Air 07/04/18 20:00 98.3 100 19 154/88 (110) 93 07/04/18 18:45 147/87 07/04/18 16:00 97.8 97 19 163/96 (118) 96 07/04/18 15:12 178/106 I&O Intake and Output 07/04/18 07/05/18 19:00 07:00 Intake Total 200 ml Output Total 850 ml 550 ml Balance -650 ml -550 ml IV Total 200 ml Output Urine Total 850 ml 550 ml # Voids 2 Dressing: dry Drains: cullen Respiratory: clear Abdomen: soft, flat, non-tender, decreased bowel sounds Extremities: no tenderness Laboratory Tests Test 07/05/18 05:20 White Blood Count 7.8 K/UL (4.8-10.8) Red Blood Count 4.28 M/UL (4.70-6.10) L Hemoglobin 13.3 G/DL (14.2-18.0) L Hematocrit 39.5 % (42.0-52.0) L Mean Corpuscular Volume 92 FL (80-99) Mean Corpuscular Hemoglobin 31.0 PG (27.0-31.0) Mean Corpuscular Hemoglobin Concent 33.5 G/DL (32.0-36.0) Red Cell Distribution Width 12.6 % (11.6-14.8) Platelet Count 206 K/UL (150-450) Mean Platelet Volume 9.2 FL (6.5-10.1) Neutrophils (%) (Auto) 75.0 % (45.0-75.0) Lymphocytes (%) (Auto) 13.9 % (20.0-45.0) L Monocytes (%) (Auto) 9.5 % (1.0-10.0) Eosinophils (%) (Auto) 1.1 % (0.0-3.0) Basophils (%) (Auto) 0.4 % (0.0-2.0) Sodium Level 139 MMOL/L (136-145) Potassium Level 4.2 MMOL/L (3.5-5.1) Chloride Level 103 MMOL/L (98-107) Carbon Dioxide Level 27 MMOL/L (21-32) Anion Gap 10 mmol/L (5-15) Blood Urea Nitrogen 9 mg/dL (7-18) Creatinine 0.8 MG/DL (0.55-1.30) Estimat Glomerular Filtration Rate > 60 mL/min (>60) Glucose Level 96 MG/DL (74-106) Calcium Level 8.6 MG/DL (8.5-10.1) Assessment Post-op Diagnosis perforated duodenal ulcer Plan Additional Comments continue as before Alo Del Real MD Jul 05, 2018 13:58
--- NOTE | 2018-07-05 15:28 | NUR ---
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 99.5 HR 89 RR 20 B/P 137/94 IS: ZOSYN IV IVF D5KCL@ 75ML/HR PROTONIX IV LOVENOX SUBC MED/SURG STATUS
[2018-07-05 16:00] VITALS: BP 148/92
--- NOTE | 2018-07-05 16:39 | NUR ---
*-* INSURANCE*-* ALL CLINICALS AND REVIEWS HAVE BEEN FAXED TOz: LIZABETH/JACKELYN P- [phone] F- [phone]
--- NOTE | 2018-07-05 19:30 | NUR ---
HAND-OFF: Report given to Anil TERRY. Patient stable.
[2018-07-05 20:00] VITALS: BP 134/80
--- NOTE | 2018-07-05 20:05 | NUR ---
NURSE NOTES: Patient in bed, asleep. Arousable to name and touch. Kept clean and comfortable. Bed in low and locked position. Skin is warm and dry to touch. Respiration is even and unlabored. No complaint of pain or discomfort noted. Right nare NG on low intermittent suction. Call light is at bedside. Will continue plan of care.
[2018-07-06] VITALS: BP 130/70
[2018-07-06 04:00] VITALS: BP 139/92
[2018-07-06] MEDS: D5 1/2NS w/KCl 20mEq 1,000 ML IV SCH ×2 (06:00→16:00)
[2018-07-06] MEDS: Nitroglycerin 2% oint pkt TOPIC SCH ×3 (06:19→17:41)
[2018-07-06] MEDS: Piperacillin/Tazobactam 3.375 GM in D5W 110 ML IVPB SCH ×3 (06:19→21:17)
--- NOTE | 2018-07-06 07:21 | NUR ---
HAND-OFF: Report given to MARA Emanuel.
[2018-07-06 07:29] LABS: BASOPHILS % (AUTO) 0.4 % (0.0-2.0); EOSINOPHILS % (AUTO) 2.2 % (0.0-3.0); HEMOGLOBIN 14.2 G/DL (14.2-18.0); LYMPHOCYTES % (AUTO) 13.5 % (20.0-45.0); MEAN CORPUSCULAR VOLUME 92 FL (80-99); MONOCYTES % (AUTO) 9.1 % (1.0-10.0); NEUTROPHILS % (AUTO) 74.8 % (45.0-75.0); PLATELET COUNT 262 K/UL (150-450); RED BLOOD COUNT 4.56 M/UL (4.70-6.10); RED CELL DISTRIBUTION WIDTH 12.4 % (11.6-14.8); WHITE BLOOD COUNT 7.5 K/UL (4.8-10.8)
--- NOTE | 2018-07-06 07:30 | NUR ---
NURSE NOTES: Patient is in bed awake and able to verbalize needs. Patient is stable with no s/s acute distress. Patient denies pain at this time. Patient is in good spirits. Patient comfortable in bed in locked position and call light within reach. Will contineu to monitor.
[2018-07-06 08:00] VITALS: BP 152/98
--- NOTE | 2018-07-06 08:48 | General Surgery Progress Note ---
General Surgery-Progress Note Subjective Symptoms: improved, BM Objective Last 24 Hour Vital Signs Date Time Temp Pulse Resp B/P (MAP) Pulse Ox O2 Delivery O2 Flow Rate FiO2 07/06/18 06:19 139/92 07/06/18 04:00 97.9 93 20 139/92 (108) 96 07/06/18 00:00 97.5 80 18 130/70 (90) 97 07/05/18 21:00 Room Air 07/05/18 20:00 97.9 84 19 134/80 (98) 94 07/05/18 18:07 148/92 07/05/18 16:00 99.0 80 20 148/92 (110) 96 07/05/18 12:27 130/83 07/05/18 12:00 99.5 89 20 130/83 (99) 96 07/05/18 09:00 Room Air I&O Intake and Output 07/05/18 07/06/18 19:00 07:00 Intake Total 592.5 ml 750.0 ml Output Total 1545 ml 705 ml Balance -952.5 ml 45.0 ml Intake Oral 240 ml IV Total 592.5 ml 510.0 ml Output Urine Total 1175 ml 400 ml Gastric Drainage Total 350 ml 300 ml Drainage Total 20 ml 5 ml # Voids 1 Dressing: dry Drains: cullen Respiratory: clear Abdomen: soft, flat, non-tender, present bowel sounds Extremities: no tenderness Laboratory Tests Test 07/06/18 05:30 White Blood Count 7.5 K/UL (4.8-10.8) Red Blood Count 4.56 M/UL (4.70-6.10) L Hemoglobin 14.2 G/DL (14.2-18.0) Hematocrit 42.0 % (42.0-52.0) Mean Corpuscular Volume 92 FL (80-99) Mean Corpuscular Hemoglobin 31.0 PG (27.0-31.0) Mean Corpuscular Hemoglobin Concent 33.7 G/DL (32.0-36.0) Red Cell Distribution Width 12.4 % (11.6-14.8) Platelet Count 262 K/UL (150-450) Mean Platelet Volume 9.9 FL (6.5-10.1) Neutrophils (%) (Auto) 74.8 % (45.0-75.0) Lymphocytes (%) (Auto) 13.5 % (20.0-45.0) L Monocytes (%) (Auto) 9.1 % (1.0-10.0) Eosinophils (%) (Auto) 2.2 % (0.0-3.0) Basophils (%) (Auto) 0.4 % (0.0-2.0) Assessment Post-op Diagnosis perforated duodenal ulcer Plan Additional Comments continue as before Alo Del Real MD Jul 06, 2018 08:48
[2018-07-06] MEDS: Docusate Sod/Senna tab ORAL SCH ×2 (09:17→17:38)
[2018-07-06] MEDS: Pantoprazole Inj IVP SCH ×2 (09:17→21:17)
[2018-07-06] MEDS: Enoxaparin 40mg Inj SUBQ SCH (09:18)
[2018-07-06 12:00] VITALS: BP 141/92
--- NOTE | 2018-07-06 13:34 | Pulmonology Progress Note ---
Assessment/Plan Assessment/Plan Pulmonary Progress Note Assessment/Plan Perforated duodenal ulcer. Exploratory laparotomy and gastrorrhaphy with Nestor patch. PLAN 1. incentive spirometry 2. SCD 3. advance diet per surgery 4. Hydration 5. Pain management 6. discharge once stable with outpatient follow up Subjective Allergies: Coded Allergies: No Known Allergies (Unverified , 07/02/18) Subjective post op care noted wants to eat Objective Vital Signs Noted Laboratory Tests 07/05/18 05:20: White Blood Count 7.8, Red Blood Count 4.28L, Hemoglobin 13.3L, Hematocrit 39.5L , Mean Corpuscular Volume 92, Mean Corpuscular Hemoglobin 31.0, Mean Corpuscular Hemoglobin Concent 33.5, Red Cell Distribution Width 12.6, Platelet Count 206, Mean Platelet Volume 9.2, Neutrophils (%) (Auto) 75.0, Lymphocytes (% ) (Auto) 13.9L, Monocytes (%) (Auto) 9.5, Eosinophils (%) (Auto) 1.1, Basophils (%) (Auto) 0.4, Sodium Level 139, Potassium Level 4.2, Chloride Level 103, Carbon Dioxide Level 27, Anion Gap 10, Blood Urea Nitrogen 9, Creatinine 0.8, Estimat Glomerular Filtration Rate > 60, Glucose Level 96, Calcium Level 8.6 Height (Feet): 5 Height (Inches): 8.00 Weight (Pounds): 195 Objective WDWN NAD clear breath sounds bilaterally without rhonchi or wheeze [id number] without MRG some bowel sounds no CCE nonfocal Subjective ROS Limited/Unobtainable: No Allergies: Coded Allergies: No Known Allergies (Unverified , 07/02/18) Objective Last 24 Hour Vital Signs Date Time Temp Pulse Resp B/P (MAP) Pulse Ox O2 Delivery O2 Flow Rate FiO2 07/06/18 12:00 99.0 88 19 141/92 (108) 96 07/06/18 12:00 141/92 07/06/18 09:00 Room Air 07/06/18 08:00 99.0 88 19 152/98 (116) 95 07/06/18 06:19 139/92 07/06/18 04:00 97.9 93 20 139/92 (108) 96 07/06/18 00:00 97.5 80 18 130/70 (90) 97 07/05/18 21:00 Room Air 07/05/18 20:00 97.9 84 19 134/80 (98) 94 07/05/18 18:07 148/92 07/05/18 16:00 99.0 80 20 148/92 (110) 96 Intake and Output 07/05/18 07/06/18 18:59 06:59 Intake Total 620.0 ml 750.0 ml Output Total 1545 ml 705 ml Balance -925.0 ml 45.0 ml Intake Oral 240 ml IV Total 620.0 ml 510.0 ml Output Urine Total 1175 ml 400 ml Gastric Drainage Total 350 ml 300 ml Drainage Total 20 ml 5 ml # Voids 1 Laboratory Tests 07/06/18 05:30: White Blood Count 7.5, Red Blood Count 4.56L, Hemoglobin 14.2, Hematocrit 42.0, Mean Corpuscular Volume 92, Mean Corpuscular Hemoglobin 31.0, Mean Corpuscular Hemoglobin Concent 33.7, Red Cell Distribution Width 12.4, Platelet Count 262, Mean Platelet Volume 9.9, Neutrophils (%) (Auto) 74.8, Lymphocytes (%) (Auto) 13.5L, Monocytes (%) (Auto) 9.1, Eosinophils (%) (Auto) 2.2, Basophils (%) (Auto ) 0.4 Current Medications Medications (Trade) Dose Ordered Sig/Nikki Route PRN Reason Start Time Stop Time Status Last Admin Dose Admin Acetaminophen (Tylenol) 650 mg Q4H PRN RECTAL FEVER 07/02/18 09:00 08/01/18 08:59 Clonidine HCl (Catapres Tab) 0.1 mg Q4H PRN SL SBP >150 07/02/18 16:45 08/01/18 16:44 07/04/18 15:12 Dextrose/ Electrolytes 1,000 ml @ 100 mls/hr Q10H IV 07/02/18 12:00 08/01/18 11:59 07/05/18 21:51 Enoxaparin Sodium (Lovenox) 40 mg DAILY SUBQ 07/02/18 12:00 08/01/18 11:59 07/06/18 09:18 Hydromorphone HCl (Dilaudid) 0.5 mg Q3H PRN IVP Pain Score 1-3 07/02/18 09:00 07/09/18 08:59 Hydromorphone HCl (Dilaudid) 1 mg Q3H PRN IVP pain score 4-6 07/02/18 09:00 07/09/18 08:59 07/05/18 05:59 Hydromorphone HCl (Dilaudid) 2 mg Q3H PRN IVP pain score 7-10 07/02/18 09:00 07/09/18 08:59 07/04/18 03:55 Metoclopramide HCl (Reglan) 10 mg Q6H PRN IVP Nausea & Vomiting 07/02/18 09:00 08/01/18 08:59 Nitroglycerin (Nitro-Bid) 1 inch TID@0600,1200,1800 TOPIC 07/03/18 12:00 08/02/18 11:59 07/06/18 12:00 Ondansetron HCl (Zofran) 4 mg Q6H PRN IVP Nausea & Vomiting 07/02/18 09:00 08/01/18 08:59 Pantoprazole (Protonix) 40 mg EVERY 12 HOURS IVP 07/02/18 11:00 08/01/18 10:59 07/06/18 09:17 Piperacillin Sod/ Tazobactam Sod 3.375 gm/Dextrose 110 ml @ 27.5 mls/hr EVERY 8 HOURS IVPB 07/04/18 16:30 07/09/18 16:29 07/06/18 06:19 Senna/Docusate Sodium (Victoria-Colace) 1 tab TWICE A DAY ORAL 07/06/18 09:00 08/05/18 08:59 07/06/18 09:17 Chivo Kaplan MD Jul 06, 2018 13:34
[2018-07-06 16:00] VITALS: BP 138/87
--- NOTE | 2018-07-06 19:53 | NUR ---
HAND-OFF: Report given to Elbert RN. Patient is stable.
[2018-07-06 20:00] VITALS: BP 141/87
--- NOTE | 2018-07-06 20:00 | NUR ---
NURSE NOTES: Received report from Jenae TERRY. Pt A&O x 4 laying supine in bed. No signs of pain or distress. IV site LAC dry, intact, flushed. Surgical site dry & intact. Call light in reach, bed in lowest position, side rails up x2. Will continue to monitor.
[2018-07-07] VITALS: BP 138/77
[2018-07-07 04:00] VITALS: BP 156/89
[2018-07-07] MEDS: Piperacillin/Tazobactam 3.375 GM in D5W 110 ML IVPB SCH ×3 (05:48→22:11)
[2018-07-07] MEDS: Nitroglycerin 2% oint pkt TOPIC SCH ×3 (05:49→17:17)
--- NOTE | 2018-07-07 06:00 | NUR ---
NURSE NOTES: Pt had small bowel movement.
--- NOTE | 2018-07-07 07:42 | NUR ---
HAND-OFF: Report given to Lopez TERRY. Pt is stable.
[2018-07-07 08:00] VITALS: BP 151/94
[2018-07-07] MEDS: Pantoprazole Inj IVP SCH ×2 (08:35→21:00)
[2018-07-07] MEDS: Docusate Sod/Senna tab ORAL SCH ×2 (08:35→17:18)
[2018-07-07] MEDS: Enoxaparin 40mg Inj SUBQ SCH (08:44)
--- NOTE | 2018-07-07 09:00 | NUR ---
NURSE NOTES: PT AXOX4, AMBULATORY AND IN NO APPARENT DISTRESS AT THIS TIME. PT'S ABDOMINAL SHIVA OPEN TO AIR. PER PT, THE DRESSINGS FELL OFF AT NIGHT. SHIVA AND ALAINA-SKIN CLEAN AND INTACT. NO S/S OF INFECTION NOTED. PT EDUCATED ON S/S INFECTION. RN RE-DRESSED WITH 4X4 GAUZE, TELFA, ABD PAD AND SILK TAPE. PT DENIES PAIN AT THIS TIME. PT ENCOURAGED TO AMBULATE TOLERATED AND SIT ON CHAIR FOR MEALS. PT EDUCATED ON FALL PRECAUTIONS AND VERBALIZED UNDERSTANDING. RIGHT ABDOMINAL ARASH DRAIN INTACT AND DRAINING SERO-SANG FLUID. PT STATES HE HAD 1 SMALL BM. WILL CONTINUE TO MONITOR.
--- NOTE | 2018-07-07 10:51 | Pulmonology Progress Note ---
Assessment/Plan Assessment/Plan Pulmonary Progress Note Assessment/Plan Perforated duodenal ulcer. Exploratory laparotomy and gastrorrhaphy with Nestor patch. PLAN 1. incentive spirometry 2. SCD 3. advance diet per surgery - consider DC today if OK surgery 4. Hydration 5. Pain management 6. discharge once stable with outpatient follow up Subjective Allergies: Coded Allergies: No Known Allergies (Unverified , 07/02/18) Subjective post op care noted wants to eat Objective Vital Signs Noted Laboratory Tests 07/05/18 05:20: White Blood Count 7.8, Red Blood Count 4.28L, Hemoglobin 13.3L, Hematocrit 39.5L , Mean Corpuscular Volume 92, Mean Corpuscular Hemoglobin 31.0, Mean Corpuscular Hemoglobin Concent 33.5, Red Cell Distribution Width 12.6, Platelet Count 206, Mean Platelet Volume 9.2, Neutrophils (%) (Auto) 75.0, Lymphocytes (% ) (Auto) 13.9L, Monocytes (%) (Auto) 9.5, Eosinophils (%) (Auto) 1.1, Basophils (%) (Auto) 0.4, Sodium Level 139, Potassium Level 4.2, Chloride Level 103, Carbon Dioxide Level 27, Anion Gap 10, Blood Urea Nitrogen 9, Creatinine 0.8, Estimat Glomerular Filtration Rate > 60, Glucose Level 96, Calcium Level 8.6 Height (Feet): 5 Height (Inches): 8.00 Weight (Pounds): 195 Objective WDWN NAD clear breath sounds bilaterally without rhonchi or wheeze [id number] without MRG some bowel sounds no CCE nonfocal Subjective ROS Limited/Unobtainable: No Allergies: Coded Allergies: No Known Allergies (Unverified , 07/02/18) Objective Last 24 Hour Vital Signs Date Time Temp Pulse Resp B/P (MAP) Pulse Ox O2 Delivery O2 Flow Rate FiO2 07/07/18 09:00 Room Air 07/07/18 08:00 98.2 93 20 151/94 (113) 94 07/07/18 05:49 156/89 07/07/18 04:25 156/89 07/07/18 04:00 98.3 77 18 156/89 (111) 97 07/07/18 00:00 97.3 80 19 138/77 (97) 97 07/06/18 21:00 Room Air 07/06/18 20:00 97.9 92 19 141/87 (105) 96 07/06/18 17:41 146/86 07/06/18 16:00 98.9 89 19 138/87 (104) 96 07/06/18 12:00 99.0 88 19 141/92 (108) 96 07/06/18 12:00 141/92 Intake and Output 07/06/18 07/07/18 19:00 07:00 Intake Total 260.0 ml 27.5 ml Output Total 10 ml Balance 260.0 ml 17.5 ml IV Total 260.0 ml 27.5 ml Drainage Total 10 ml # Voids 3 2 # Bowel Movements 1 Current Medications Medications (Trade) Dose Ordered Sig/Nikki Route PRN Reason Start Time Stop Time Status Last Admin Dose Admin Acetaminophen (Tylenol) 650 mg Q4H PRN RECTAL FEVER 07/02/18 09:00 08/01/18 08:59 Clonidine HCl (Catapres Tab) 0.1 mg Q4H PRN SL SBP >150 07/02/18 16:45 08/01/18 16:44 07/07/18 04:25 Enoxaparin Sodium (Lovenox) 40 mg DAILY SUBQ 07/02/18 12:00 08/01/18 11:59 07/07/18 08:44 Hydromorphone HCl (Dilaudid) 0.5 mg Q3H PRN IVP Pain Score 1-3 07/02/18 09:00 07/09/18 08:59 Hydromorphone HCl (Dilaudid) 1 mg Q3H PRN IVP pain score 4-6 07/02/18 09:00 07/09/18 08:59 07/05/18 05:59 Hydromorphone HCl (Dilaudid) 2 mg Q3H PRN IVP pain score 7-10 07/02/18 09:00 07/09/18 08:59 07/04/18 03:55 Metoclopramide HCl (Reglan) 10 mg Q6H PRN IVP Nausea & Vomiting 07/02/18 09:00 08/01/18 08:59 Nitroglycerin (Nitro-Bid) 1 inch TID@0600,1200,1800 TOPIC 07/03/18 12:00 08/02/18 11:59 07/07/18 05:49 Ondansetron HCl (Zofran) 4 mg Q6H PRN IVP Nausea & Vomiting 07/02/18 09:00 08/01/18 08:59 Pantoprazole (Protonix) 40 mg EVERY 12 HOURS IVP 07/02/18 11:00 08/01/18 10:59 07/07/18 08:35 Piperacillin Sod/ Tazobactam Sod 3.375 gm/Dextrose 110 ml @ 27.5 mls/hr EVERY 8 HOURS IVPB 07/04/18 16:30 07/09/18 16:29 07/07/18 05:48 Senna/Docusate Sodium (Victoria-Colace) 1 tab TWICE A DAY ORAL 07/06/18 09:00 08/05/18 08:59 07/07/18 08:35 Chivo Kaplan MD Jul 07, 2018 10:51
[2018-07-07 12:00] VITALS: BP 144/94
--- NOTE | 2018-07-07 15:35 | NUR ---
NURSE NOTES: PT DENIES NAUSEA AND VOMITING, DENIES PAIN. RN NOTIFIED DR WILLIS REGARDING REQUEST TO ADVANCE DIET. NEW ORDER TO START REGULAR DIET. ORDER ENTERED. PT HAD 2 BM TODAY.
[2018-07-07 16:00] VITALS: BP 136/84
--- NOTE | 2018-07-07 16:50 | General Surgery Progress Note ---
General Surgery-Progress Note Subjective Symptoms: improved, BM Objective Last 24 Hour Vital Signs Date Time Temp Pulse Resp B/P (MAP) Pulse Ox O2 Delivery O2 Flow Rate FiO2 07/07/18 16:00 98.4 85 20 136/84 (101) 95 07/07/18 12:05 144/94 07/07/18 12:00 99.0 98 20 144/94 (111) 95 07/07/18 09:00 Room Air 07/07/18 08:00 98.2 93 20 151/94 (113) 94 07/07/18 05:49 156/89 07/07/18 04:25 156/89 07/07/18 04:00 98.3 77 18 156/89 (111) 97 07/07/18 00:00 97.3 80 19 138/77 (97) 97 07/06/18 21:00 Room Air 07/06/18 20:00 97.9 92 19 141/87 (105) 96 07/06/18 17:41 146/86 I&O Intake and Output 07/06/18 07/07/18 18:59 06:59 Intake Total 260.0 ml Output Total 10 ml Balance 260.0 ml -10 ml IV Total 260.0 ml Drainage Total 10 ml # Voids 3 2 # Bowel Movements 1 Wound: clean, intact Drains: none Respiratory: clear Abdomen: soft, flat, non-tender, present bowel sounds Extremities: no tenderness Assessment Post-op Diagnosis perforated duodenal ulcer Plan Additional Comments diet Alo Del Real MD Jul 07, 2018 16:50
[2018-07-07] MEDS ORDERED: traMADol 50mg tab ORAL PRN (17:00)
--- NOTE | 2018-07-07 17:37 | NUR ---
NURSE NOTES: DR WILLIS AT BEDSIDE WITH PT. DR WILLIS TOOK OUT JG DRAIN AND PT WITH DRY DRESSING OVER PREVIOUS ARASH DRAIN SITE. ABDOMINAL SUTURES OPEN TO AIR. PT TOLERATING REGULAR DIET AND ASKING FOR SECOND PORTIONS. DENIES NAUSEA OR VOMITING.
[2018-07-07] MEDS ORDERED: PROTONIX40 MG ORAL (19:09)
--- NOTE | 2018-07-07 19:24 | NUR ---
HAND-OFF: Report given to Tina LEBLANC RN.
[2018-07-07 20:00] VITALS: BP_SYST 124; BP_SYST 133; BP_DIAS 68; BP_DIAS 90
[2018-07-08] VITALS: BP 129/74
[2018-07-08 04:00] VITALS: BP 132/77
[2018-07-08] MEDS: Nitroglycerin 2% oint pkt TOPIC SCH (05:58)
[2018-07-08] MEDS: Piperacillin/Tazobactam 3.375 GM in D5W 110 ML IVPB SCH (05:58)
--- NOTE | 2018-07-08 07:50 | NUR ---
NURSE NOTES: Received patient on bed, awake. IV site intact and patent. Bed in low and locked position, call light within reach. No signs of respiratory distress, patient denies pain. Room board updated, will continue to monitor.
[2018-07-08 08:00] VITALS: BP 153/86
--- NOTE | 2018-07-08 08:07 | General Progress Note ---
Assessment/Plan Assessment/Plan Perforated duodenal ulcer. Exploratory laparotomy and gastrorrhaphy with Nestor patch. PLAN 1. incentive spirometry 2. SCD 3. advance diet per surgery 4. Hydration 5. Pain management 6. discharge today if ok with surgery Subjective Allergies: Coded Allergies: No Known Allergies (Unverified , 07/02/18) Subjective post op care noted taking po Objective Last 24 Hour Vital Signs Date Time Temp Pulse Resp B/P (MAP) Pulse Ox O2 Delivery O2 Flow Rate FiO2 07/08/18 05:58 132/77 07/08/18 04:00 98.1 82 19 132/77 (95) 96 07/08/18 00:00 97.8 88 18 129/74 (92) 95 07/07/18 21:00 Room Air 07/07/18 20:00 98.2 85 18 124/68 (86) 94 07/07/18 20:00 98.7 88 19 133/90 (104) 96 07/07/18 17:17 136/84 07/07/18 16:00 98.4 85 20 136/84 (101) 95 07/07/18 12:05 144/94 07/07/18 12:00 99.0 98 20 144/94 (111) 95 07/07/18 09:00 Room Air Intake and Output 07/07/18 07/08/18 19:00 07:00 Intake Total 4637.5 ml 600 ml Balance 4637.5 ml 600 ml Intake Oral 4500 ml 600 ml IV Total 137.5 ml # Voids 6 3 Height (Feet): 5 Height (Inches): 8.00 Weight (Pounds): 195 Objective WDWN NAD clear breath sounds bilaterally without rhonchi or wheeze [id number] without MRG + bowel sounds no CCE nonfocal Arash William MD Jul 08, 2018 08:07
[2018-07-08] MEDS: Pantoprazole Inj IVP SCH (08:52)
[2018-07-08 08:53] VITALS: BP 153/86
[2018-07-08] MEDS: Enoxaparin 40mg Inj SUBQ SCH (08:54)
[2018-07-08] MEDS: Docusate Sod/Senna tab ORAL SCH (08:55)
--- NOTE | 2018-07-08 09:00 | NUR ---
NURSE NOTES: Patient refused scheduled pericolace mediction. Stated he did need it as he already had two bowel movements today.
--- NOTE | 2018-07-08 10:30 | NUR ---
NURSE NOTES: Patient discharged. ID band removed an disposed of. IV removed and site covered. Personal belongings inventoried and sent home with patient. patient needs met and patient kept comfortable at all times. Patient departed in private vehicle with friend.
--- NOTE | 2018-07-08 11:06 | Discharge Summary ---
Discharge Summary Discharge Summary _ DATE OF ADMISSION: 07/02/2018 DATE OF DISCHARGE: 07/08/2018 DISCHARGED BY: Dr. William REASON FOR ADMISSION: 58 years old male with past medical history of hypertension, methamphetamine abuse, presented with chief complaint of epigastric abdominal pain. Patient reported onset of mild pain about 5 days ago. Within the last few hours pain became severe, localized to the upper quadrants. Pain described as 10 out of 10 worse with movement. Patient denied nausea and vomiting. He denied diarrhea . No fevers. No trauma. Upon evaluation laboratory workup was unremarkable. EKG revealed normal sinus rhythm , no acute ischemic changes . CT of the abdomen and pelvis revealed findings suggestive of perforated gastric ulcer . Patient admitted for further management CONSULTANTS: [facility] COURSE: Patient admitted to medical surgical floor, started on IV fluids and kept n.p.o. Surgery consult was requested. Subsequently patient undergone exploratory laparotomy and gastrorrhaphy with Nestor patch on 07/02 Course of recovery was uneventful. ID specialist followed. Per ID specialist, patient had perforated peptic ulcer and likely peritonitis. Antibiotic provided as per ID specialist recommendation. Pain management was addressed. Patient started PPI. DVT prophylaxis with SCD implemented. Diet started, when bowel function returned, and was advanced as tolerated. Antiemetics were on board as needed . Ambulation was encouraged. Incentive spirometry was taught and encouraged every 1 hour while in the bed. Patient was progressing well. Pain controlled, incision clean, dry and intact with dressing, tolerated diet, voided freely, had bowel movement. Patient was stable for discharge home with outpatient follow-up with surgeon as advised. FINAL DIAGNOSES: Perforated duodenal ulcer likely with peritonitis Status post exploratory laparotomy and gastrorrhaphy with Nestor patch 07/02 Hypertension Amphetamine abuse DISCHARGE MEDICATIONS: See Medication Reconciliation list. DISCHARGE INSTRUCTIONS: Patient was discharged home . Follow up with surgeon as outpatient as advised. Patient was counseled on abstinence from illicit street drug . I have been assigned to dictate discharge summary for this account. I was not involved in the patient's management. Teressa Crowe NP Jul 08, 2018 11:06
== END 2018-07-08 10:30 | disposition home or self-care (01) | DRG 223 ==
LOC: EDBD 03:22 → EMR 03:37 → EDBEDREQ 05:50 → SUR 05:54 → EDBEDREQ 06:09 → 3E 10:41
PROC: 0W9G00Z Drainage of Peritoneal Cavity with Drainage Device, Open Approach (ICD-10-PCS; 2018-07-02)
PROC: 0DU907Z Supplement Duodenum with Autologous Tissue Substitute, Open Approach (ICD-10-PCS; principal; 2018-07-02 07:30)
DX: K26.1 Acute duodenal ulcer with perforation (principal); K65.2 Spontaneous bacterial peritonitis; I10 Essential (primary) hypertension; F15.10 Other stimulant abuse, uncomplicated; F17.200 Nicotine dependence, unspecified, uncomplicated; K57.90 Diverticulosis of intestine, part unspecified, without perforation or abscess without bleeding
CPT/HCPCS: 36415; 74176; 80048; 80053; 81003; 83690; 85025; 85610; 85730; 86850; 86900; 86901; 90686; 90732; 94003; 94150; 96361; 96365; 96375; 96376; 99285; C9399; J2250; J2405; J2765

== ENCOUNTER 2018-07-15 11:15 | Emergency (ER) | payer OTHER ==
[~2018-07-15] VITALS: Ht 172.7 cm; Wt 88.5 kg
[~2018-07-15 11:15] MED LIST: PROTONIX40 MG ORAL
--- NOTE | 2018-07-15 11:19 | NUR ---
ED Nurse Note: pt not in the waiting room
[2018-07-15] MEDS ORDERED: UNOBMED (11:46)
--- NOTE | 2018-07-15 11:52 | NUR ---
ED Nurse Note: Pt came into the ER w/ complaints of itchiness in the mid abdominal surgical site. Pt had GI surgery on 07/08/18. Pt denies pain. 15 rm noted to be at the site. Redness and red bumbps noted around the site and all over pt's abdomen.
[2018-07-15 11:54] VITALS: BP 160/85
--- NOTE | 2018-07-15 13:35 | NUR ---
ED Nurse Note: Edwards has been remoevd by director of digital technology. Cleaned w/ NS and placed dry dressing. No drainage or complaints of pain. Will continue to monitor.
--- NOTE | 2018-07-15 14:03 | Emergency Room Report ---
History of Present Illness General Chief Complaint: General Complaint Source: Patient Present Illness HPI Patient states he is 2 weeks postoperative from a surgery done by Dr. Del Real. This was for a perforated peptic ulcer disease. The patient states that he was unable to get an appointment at the surgical office so he presents here for wound check and staple removal. He has no other complaints. He denies pain. He denies swelling. Allergies: Coded Allergies: No Known Allergies (Unverified , 07/15/18) Patient History Past Medical History: see triage record, HTN, GERD, other - ETOH abuse Social History: Reports: alcohol use; Denies: smoking, drug use Reviewed Nursing Documentation: PMH: Agreed; PSxH: Agreed Nursing Documentation-PMH Past Medical History: No History, Except For Hx Cardiac Problems: Yes Hx Hypertension: Yes Hx Cancer: No Hx Gastrointestinal Problems: Yes Hx Neurological Problems: No Review of Systems All Other Systems: negative except mentioned in HPI Physical Exam Vital Signs Date Time Temp Pulse Resp B/P (MAP) Pulse Ox O2 Delivery O2 Flow Rate FiO2 07/15/18 11:40 98.2 100 16 165/86 98 Room Air 07/15/18 11:54 98 Sp02 EP Interpretation: reviewed, normal General Appearance: no apparent distress, alert, GCS 15, non-toxic Head: normocephalic, atraumatic Eyes: bilateral eye normal inspection, bilateral eye PERRL ENT: hearing grossly normal, normal pharynx, no angioedema, normal voice Neck: full range of motion, supple/symm/no masses Respiratory: no respiratory distress, no retraction, no accessory muscle use, speaking full sentences Gastrointestinal: normal bowel sounds, non tender, soft, non-distended, no guarding, no rebound, other - Rm in place over surgical wound. erythema around staple punctures, healing, no swelling or discharge. Rectal: deferred Musculoskeletal: back normal, normal range of motion, non-tender Neurologic: alert, oriented x3, responsive, motor strength/tone normal, sensory intact, speech normal Psychiatric: judgement/insight normal, memory normal, mood/affect normal, no suicidal/homicidal ideation Skin: normal color, no rash, warm/dry, well hydrated, other - See exam above in GI Medical Decision Making Diagnostic Impression: Primary Impression: Encounter for staple removal ER Course This patient has findings on exam consistent with a healing postoperative wound. The rm have been in longer than they should and that is why there is some surrounding erythema at the puncture sites. There is no evidence of infection. Dr. Del Real did see the patient. The patient rm are removed and the wound was dressed. The patient was instructed to follow-up with Dr. Del Real in his office. The patient is given close return precautions and follow-up instructions. Last Vital Signs Date Time Temp Pulse Resp B/P (MAP) Pulse Ox O2 Delivery O2 Flow Rate FiO2 07/15/18 11:54 99 18 Room Air 98 07/15/18 11:54 98.2 160/85 98 Status: improved Disposition: HOME, SELF-CARE Condition: Improved Referrals: NIVIA MARK,REFERRING (PCP) Judy Rangel DO Jul 15, 2018 14:03
[2018-07-15 14:12] VITALS: BP 130/75
--- NOTE | 2018-07-15 14:12 | NUR ---
ED Nurse Note: Discharge instructions given to pt. Answered all questions. Verbalized understanding. ID band removed. Left ER w/ all belongings and w/ a steady gait
== END 2018-07-15 14:13 | disposition home or self-care (01) ==
LOC: EMR 12:00
DX: Z48.02 Encounter for removal of sutures (principal); Z98.890 Other specified postprocedural states; F17.200 Nicotine dependence, unspecified, uncomplicated; I10 Essential (primary) hypertension; F10.10 Alcohol abuse, uncomplicated
CPT/HCPCS: 99281

== ENCOUNTER 2019-04-12 09:08 | Emergency (ER) | payer MEDICAID, OTHER ==
[~2019-04-12] VITALS: Ht 172.7 cm; Wt 86.2 kg
[~2019-04-12 09:08] MED LIST changes: +UNOBMED
--- NOTE | 2019-04-12 09:13 | NUR ---
ED Nurse Note: King walked into ED c/o dry and cracked feet. patient states that he first noticed it for the past week and it has gotten worse. patients feet does present with a foul odor, patient presents with a thickening of skin on both feet as well as cracks on the webs of the toes, patient rates his pain a 8/10 pain. patient does have a blackened toe on his right foot. king is alert and oriented x4, Accu-check shows 97. patient does have an elevated BP in the 170s however does not complain of a headache, states that he has not been any taking of his medications recently. will continue to monitor
[2019-04-12 09:25] VITALS: BP 170/88
[2019-04-12] MEDS ORDERED: RINGWORM14.2 GM TP (09:42)
[2019-04-12] MEDS ORDERED: CEPHALEXIN500 MG ORAL (09:42)
--- NOTE | 2019-04-12 09:45 | Emergency Room Report ---
History of Present Illness General Chief Complaint: Skin Rash/Abscess Source: Patient, Medical Record Present Illness HPI Patient is a 58-year-old male presents after increased itchiness to both lower extremities. Patient reports having increased rash to his foot. He reports having some increased skin cracking to the toes. Reports having thickening to the skin. Denies being diabetic. He denies taking any medications currently. Denies any history of alcohol abuse. Allergies: Coded Allergies: No Known Allergies (Unverified , 07/15/18) Patient History Past Medical History: see triage record Reviewed Nursing Documentation: PMH: Agreed; PSxH: Agreed Nursing Documentation-PMH Hx Cardiac Problems: Yes Hx Hypertension: Yes Hx Cancer: No Hx Gastrointestinal Problems: Yes Hx Neurological Problems: No Review of Systems All Other Systems: negative except mentioned in HPI Physical Exam Vital Signs Date Time Temp Pulse Resp B/P (MAP) Pulse Ox O2 Delivery O2 Flow Rate FiO2 04/12/19 09:20 97.5 98 18 170/88 (115) 95 Room Air General Appearance: well appearing, no apparent distress, alert, GCS 15 Head: normocephalic, atraumatic ENT: hearing grossly normal, normal voice Neck: full range of motion, supple Respiratory: no respiratory distress, speaking full sentences Cardiovascular #1: normal inspection, regular rate, rhythm Musculoskeletal: no calf tenderness Neurologic: normal inspection, alert, oriented x3, responsive, helpdesk administrator III-XII nml as tested, normal gait Psychiatric: mood/affect normal Skin: other - Multiple excoriations to the bottom of the left foot with some skin cracking and thickening of the nail Medical Decision Making Diagnostic Impression: Primary Impression: Infection, fungal, left foot ER Course Patient presented for foot pain. Differential diagnoses include was was not limited to cellulitis, infection, foreign body, fracture, plantar fasciitis. Patient appears to have some chronic infection to the skin of his feet bilaterally. Patient does not appear to have any evidence of significant cellulitis. Accu-Chek was greater than 91. Patient does not appear to have any evidence of lesions to his palms. Patient appears to have some fungal infection however there does appear to be some secondary bacterial infection to some of the excoriated areas and patient will be given prescription for oral antibiotics. Patient was to follow-up with primary care physician for recheck in the next few days. He is to return if worse. He is given prescription for antifungal medications as well as Keflex. This medical record is generated with [employer] beater out leveling machine software. There may be some beater out leveling machine discrepancies related to use of this software Last Vital Signs Date Time Temp Pulse Resp B/P (MAP) Pulse Ox O2 Delivery O2 Flow Rate FiO2 04/12/19 09:25 97.5 98 18 170/88 95 Room Air Status: improved Disposition: HOME, SELF-CARE Condition: Stable Scripts Cephalexin* (KEFLEX*) 500 Mg Capsule 500 MG ORAL EVERY 6 HOURS, #28 CAP Prov: Terry Moe MD 04/12/19 Clotrimazole (RINGWORM) 14.2 Gm Cream..g. 14.2 GM TP TWICE A DAY for 28 Days, #30 GM Prov: Terry Moe MD 04/12/19 Patient Instructions: Athlete's Foot Additional Instructions: Follow up with your doctor for recheck. Use medication twice a day. Return for fever, worsening swelling or other concerns. Terry Moe MD Apr 12, 2019 09:45
--- NOTE | 2019-04-12 10:00 | NUR ---
ER DISCHARGE NOTE: Patient is cleared to be discharged per ERMD, pt is aox4, on room air, with stable vital signs. pt was given dc and prescription instructions, pt was able to verbalize understanding, pt id band removed without complications. pt is able to ambulate with steady gait. pt took all belongings.
[2019-04-12 10:01] VITALS: BP 162/85
--- NOTE | 2019-04-12 10:05 | Diagnostic Imaging Report ---
EXAM: XR Left Foot Complete, 3 or More Views CLINICAL HISTORY: PAIN TECHNIQUE: Frontal, lateral and oblique views of the left foot. COMPARISON: No relevant prior studies available. FINDINGS: Bones joints: Unremarkable. No visible displaced fracture. No dislocation. No osseous erosions. Visualized joint spaces appear unremarkable. Soft tissues: Unremarkable. No radiopaque foreign body. IMPRESSION: Unremarkable left foot x-rays.
== END 2019-04-12 10:02 | disposition home or self-care (01) ==
LOC: EMR 09:32
DX: B35.3 Tinea pedis (principal); I10 Essential (primary) hypertension; M79.672 Pain in left foot
CPT/HCPCS: 73630; Z7502; 99283

== ENCOUNTER 2019-05-19 06:04 | Emergency (ER) | payer MEDICAID ==
[~2019-05-19] VITALS: Ht 172.7 cm; Wt 86.2 kg
[~2019-05-19 06:04] MED LIST changes: +CEPHALEXIN500 MG ORAL; +RINGWORM14.2 GM TP
--- NOTE | 2019-05-19 06:11 | NUR ---
ED Nurse Note: pt presents [place] ED from the streets, he states that 3-4 houts ago he was injected with an unknown substance and someone told him to come get evaluated for "sulfur in his blood." pt has a h/o bipoalr and HTN. pt does not c/o any other symptoms at this time
[2019-05-19 06:13] VITALS: BP 162/98
[2019-05-19 06:18] VITALS: BP 162/98
--- NOTE | 2019-05-19 06:18 | NUR ---
ER DISCHARGE NOTE: Patient is cleared to be discharged per ERMD, pt is aox4, on room air, with stable vital signs. pt was given dc instructions, pt was able to verbalize understanding, pt id band removed without complications. pt is able to ambulate with steady gait. pt took all belongings.
--- NOTE | 2019-05-19 06:20 | Emergency Room Report ---
History of Present Illness General Chief Complaint: General Complaint Source: Patient Present Illness HPI Patient presents with reports that he has been diagnosed with high blood pressure and wanted the blood pressure to be checked patient also reports that he was told by someone that he might have been injected with sulfur Denies any chest pain denies any palpitation denies any weakness denies any headache denies any fevers or chills And reports that he does not do any drugs Allergies: Coded Allergies: No Known Allergies (Unverified , 07/15/18) Patient History Past Medical History: see triage record Reviewed Nursing Documentation: PMH: Agreed; PSxH: Agreed Nursing Documentation-PMH Hx Cardiac Problems: Yes Hx Hypertension: Yes Hx Cancer: No Hx Gastrointestinal Problems: Yes History Of Psychiatric Problem: Yes - bipolar Hx Neurological Problems: No Review of Systems All Other Systems: negative except mentioned in HPI Physical Exam Vital Signs Date Time Temp Pulse Resp B/P (MAP) Pulse Ox O2 Delivery O2 Flow Rate FiO2 05/19/19 06:05 97.9 98 18 162/98 (119) 97 Room Air Sp02 EP Interpretation: reviewed, normal General Appearance: well appearing, no apparent distress Head: normocephalic, atraumatic Eyes: bilateral eye PERRL, bilateral eye EOMI ENT: hearing grossly normal, normal pharynx, TMs + canals normal, uvula midline Neck: full range of motion, supple, no meningismus, no bony tend Respiratory: lungs clear, normal breath sounds, no rhonchi, no respiratory distress, no retraction, no accessory muscle use Cardiovascular #1: normal peripheral pulses, regular rate, rhythm, no edema, no gallop, no JVD, no murmur Gastrointestinal: normal bowel sounds, non tender, soft, no mass, no organomegaly, non-distended, no guarding, no hernia, no pulsatile mass, no rebound Genitourinary: no CVA tenderness Musculoskeletal: normal inspection Neurologic: motor strength/tone normal, 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 tested, oriented x3 , sensory intact, responsive Psychiatric: mood/affect normal Skin: no rash Lymphatic: normal inspection, no adenopathy Medical Decision Making Diagnostic Impression: Primary Impression: hypertension Additional Impression: Encounter for generalized patient complaints ER Course Patient is hemodynamically stable has a benign medical evaluation I did discuss with him that further blood testing was not warranted emergently patient was provided with outpatient clinics as needed We will also continue to check his blood pressure and requires close outpatient follow-up Last Vital Signs Date Time Temp Pulse Resp B/P (MAP) Pulse Ox O2 Delivery O2 Flow Rate FiO2 05/19/19 06:13 98 18 Room Air 05/19/19 06:13 97.9 162/98 97 Status: improved Disposition: HOME, SELF-CARE Condition: Stable Referrals: [facility] Patient Instructions: Hypertension, [id number], Hypertension Additional Instructions: Patient is provided with the discharge instructions notified to follow up with primary doctor in the next 2-3 days otherwise return to the er with any worsening symptoms. Please note that this report is being documented using [employer] technology. This can lead to erroneous entry secondary to incorrect interpretation by the dictating instrument. Jackson Chadwick DO May 19, 2019 06:20
== END 2019-05-19 06:18 | disposition home or self-care (01) ==
LOC: EMR 06:15
DX: I10 Essential (primary) hypertension (principal); F31.9 Bipolar disorder, unspecified
CPT/HCPCS: 99281

== ENCOUNTER 2019-05-27 20:48 | Emergency (ER) | payer MEDICAID ==
[~2019-05-27] VITALS: Ht 172.7 cm; Wt 86.2 kg
--- NOTE | 2019-05-27 21:10 | NUR ---
ED Nurse Note: Recieved pt BIBA from [facility] with c/o abd pain with nausea and vomiting and weakness, pt states has history of gastric ulcers and bleding, pt denies cp, sob, fevers and also has weakness, denies emesis and also with diarrhea for 2 days, pt gowned and waiting to be seen by md, pt has mild increased heart rate, will resume care as ordered by md.
[2019-05-27] MEDS ORDERED: Omnipaque-300 100ml vial INJ PRN (21:15)
[2019-05-27] MEDS ORDERED: Morphine Sulfate 4mg/ml Inj (IV USE ONLY) IVP ONE (21:15)
[2019-05-27 21:26] LABS: APPEARANCE,URINE CLEAR; BILIRUBIN, URINE NEGATIVE (NEGATIVE); COLOR,URINE YELLOW; GLUCOSE, URINE (UA) NEGATIVE (NEGATIVE); KETONES,URINE 1+ (NEGATIVE); LEUKOCYTE ESTERASE ,URINE 1+ (NEGATIVE); NITRITE,URINE NEGATIVE (NEGATIVE); PH,URINE 5 (4.5-8.0); PROTEIN,URINE 1+ (NEGATIVE); UROBILINOGEN,URINE NORMAL MG/DL (0.0-1.0)
[2019-05-27 21:27] LABS: HEMATOCRIT 45.8 % (42.0-52.0); HEMOGLOBIN 15.9 G/DL (14.2-18.0); MEAN CORPUSCULAR VOLUME 88 FL (80-99); PLATELET COUNT 297 K/UL (150-450); RED BLOOD COUNT 5.23 M/UL (4.70-6.10); RED CELL DISTRIBUTION WIDTH 12.2 % (11.6-14.8)
--- NOTE | 2019-05-27 21:29 | Emergency Room Report ---
History of Present Illness General Chief Complaint: Vomiting Source: Patient Present Illness HPI 58-year-old male history of gastritis, history of gastric ulcer perforation presents with epigastric pain that started at 5 PM, no aggravating alleviating factors, patient also had acute nausea and vomiting he describes the pain as sharp severity is moderate, constant, patient states he thinks he just needs to lie down and will get better, no fevers, he does endorse some chills, no chest pain no shortness of breath no dyspnea on exertion patient presents for evaluation Allergies: Coded Allergies: No Known Allergies (Unverified , 07/15/18) Patient History Past Medical History: see triage record Reviewed Nursing Documentation: PMH: Agreed; PSxH: Agreed Nursing Documentation-PMH Past Medical History: No Stated History Hx Cardiac Problems: Yes Hx Hypertension: Yes Hx Cancer: No Hx Gastrointestinal Problems: Yes Hx Neurological Problems: No Review of Systems All Other Systems: negative except mentioned in HPI Physical Exam Vital Signs Date Time Temp Pulse Resp B/P (MAP) Pulse Ox O2 Delivery O2 Flow Rate FiO2 05/27/19 20:53 97.5 110 18 137/82 (100) 98 Room Air Sp02 EP Interpretation: reviewed, normal General Appearance: well appearing, no apparent distress, alert Head: normocephalic, atraumatic Eyes: bilateral eye PERRL, bilateral eye EOMI ENT: uvula midline, moist mucus membranes Neck: supple, thyroid normal, supple/symm/no masses Respiratory: lungs clear, no respiratory distress, no retraction, no accessory muscle use Cardiovascular #1: normal peripheral pulses, no edema, no gallop, no murmur, tachycardia Gastrointestinal: soft, no guarding, no rebound, tenderness - Tender epigastrically no rebound no guarding Musculoskeletal: normal inspection Neurologic: alert, oriented x3 Psychiatric: mood/affect normal Skin: no rash, warm/dry Medical Decision Making Diagnostic Impression: Primary Impression: Vomiting Qualified Codes: R11.2 - Nausea with vomiting, unspecified Additional Impressions: Pancreatitis Qualified Codes: K85.00 - Idiopathic acute pancreatitis without necrosis or infection UTI (urinary tract infection) Qualified Codes: N30.00 - Acute cystitis without hematuria ER Course 58-year-old male presents with epigastric pain, differential diagnosis includes ACS, pancreatitis, gallstones, perforated ulcer Patient found to have an elevated lipase with an elevated white count, also additionally patient had a UTI Patient given fluids, hydromorphone for pain, and given ceftriaxone for his incidental UTI Reevaluation at 12:37 AM, patient improving with pain control Patient accepted by Dr. Sky at 1:19AM Laboratory Tests Test 05/27/19 21:00 05/27/19 21:10 Urine Color Yellow Urine Appearance Clear Urine pH 5 (4.5-8.0) Urine Specific [place] 1.020 (1.005-1.035) Urine Protein 1+ (NEGATIVE) H Urine Glucose (UA) Negative (NEGATIVE) Urine Ketones 1+ (NEGATIVE) H Urine Blood 2+ (NEGATIVE) H Urine Nitrite Negative (NEGATIVE) Urine Bilirubin Negative (NEGATIVE) Urine Urobilinogen Normal MG/DL (0.0-1.0) Urine Leukocyte Esterase 1+ (NEGATIVE) H Urine RBC 0-2 /HPF (0 - 0) H Urine WBC 0-2 /HPF (0 - 0) Urine Squamous Epithelial Cells Occasional /LPF Urine Bacteria Moderate /HPF (NONE) H White Blood Count 18.0 K/UL (4.8-10.8) H Red Blood Count 5.23 M/UL (4.70-6.10) Hemoglobin 15.9 G/DL (14.2-18.0) Hematocrit 45.8 % (42.0-52.0) Mean Corpuscular Volume 88 FL (80-99) Mean Corpuscular Hemoglobin 30.5 PG (27.0-31.0) Mean Corpuscular Hemoglobin Concent 34.8 G/DL (32.0-36.0) Red Cell Distribution Width 12.2 % (11.6-14.8) Platelet Count 297 K/UL (150-450) Mean Platelet Volume 7.4 FL (6.5-10.1) Neutrophils (%) (Auto) % (45.0-75.0) Lymphocytes (%) (Auto) % (20.0-45.0) Monocytes (%) (Auto) % (1.0-10.0) Eosinophils (%) (Auto) % (0.0-3.0) Basophils (%) (Auto) % (0.0-2.0) Differential Total Cells Counted 100 Neutrophils % (Manual) 89 % (45-75) H Lymphocytes % (Manual) 5 % (20-45) L Monocytes % (Manual) 1 % (1-10) Eosinophils % (Manual) 1 % (0-3) Basophils % (Manual) 0 % (0-2) Band Neutrophils 4 % (0-8) Platelet Estimate Adequate Platelet Morphology Normal Red Blood Cell Morphology Normal Prothrombin Time 10.0 SEC (9.30-11.50) Prothrombin Time INR 0.9 (0.9-1.1) PTT 24 SEC (23-33) Sodium Level 141 MMOL/L (136-145) Potassium Level 3.8 MMOL/L (3.5-5.1) Chloride Level 107 MMOL/L (98-107) Carbon Dioxide Level 30 MMOL/L (21-32) Anion Gap 4 mmol/L (5-15) L Blood Urea Nitrogen 19 mg/dL (7-18) H Creatinine 0.9 MG/DL (0.55-1.30) Estimate Glomerular Filtration Rate > 60 mL/min (>60) Glucose Level 116 MG/DL (74-106) H Calcium Level 8.4 MG/DL (8.5-10.1) L Total Bilirubin 0.5 MG/DL (0.2-1.0) Aspartate Amino Transferase (AST) 18 U/L (15-37) Alanine Aminotransferase (ALT) 29 U/L (12-78) Alkaline Phosphatase 80 U/L (46-116) Troponin I 0.020 ng/mL (0.000-0.056) Total Protein 7.6 G/DL (6.4-8.2) Albumin 3.6 G/DL (3.4-5.0) Globulin 4.0 g/dL Albumin/Globulin Ratio 0.9 (1.0-2.7) L Lipase 843 U/L (73-393) H EKG Diagnostic Results EKG Time: 21:14 EP Interpretation: NSR, rate 92, QTc 437, no acute ST elevations, normal axis Rhythm Strip Diag. Results Rhythm Strip Time: 01:20 EP Interpretation: yes Rate: 96 Rhythm: NSR, no PVC's, no ectopy CT/MRI/US Diagnostic Results CT/MRI/US Diagnostic Results : Impression Procedure: CT Abdomen Pelvis w/Contrast CT ABDOMEN + PELVIS With Contrast: Small hiatal hernia. Small lymph node adjacent to the right posterior lateral aspect of the herniated portion of the stomach, significant unknown. Fluid within nondistended loops of small bowel and within stomach without bowel wall thickening or surrounding inflammation can be normal or can be seen with gastroenteritis in the right clinical setting. No appendicitis, inflammatory changes of bowel or bowel obstruction. No free fluid. No free air. Aorta, liver, spleen, pancreas, gallbladder, and kidneys are unremarkable. Dictated By: Holden Mireles MD Electronically Signed By: Signed Date/Time CC: Last Vital Signs Date Time Temp Pulse Resp B/P (MAP) Pulse Ox O2 Delivery O2 Flow Rate FiO2 05/27/19 20:53 97.5 110 18 137/82 (100) 98 Room Air Disposition: XFER [facility] Condition: Stable Anuj Fermin MD May 27, 2019 21:29
[2019-05-27 21:37] LABS: ANION GAP 4 mmol/L (5-15); BLOOD UREA NITROGEN 19 mg/dL (7-18); CALCIUM 8.4 MG/DL (8.5-10.1); CARBON DIOXIDE 30 MMOL/L (21-32); CHLORIDE 107 MMOL/L (98-107); CREATININE 0.9 MG/DL (0.55-1.30); POTASSIUM 3.8 MMOL/L (3.5-5.1); SODIUM 141 MMOL/L (136-145)
[2019-05-27 21:38] LABS: INR 0.9 (0.9-1.1)
[2019-05-27 21:41] LABS: ALANINE AMINOTRANSFERASE 29 U/L (12-78); ALBUMIN 3.6 G/DL (3.4-5.0); ALBUMIN/GLOBULIN RATIO 0.9 (1.0-2.7); ALKALINE PHOSPHATASE 80 U/L (46-116); ASPARTATE AMINO TRANSFERASE 18 U/L (15-37); BILIRUBIN,TOTAL 0.5 MG/DL (0.2-1.0)
--- NOTE | 2019-05-27 23:20 | NUR ---
ED Nurse Note: Pt returned from being in imaging department via wheelchair, pt is awake and alert and has mild active emesis and c/o having increased pain again, no continuous monitoring, v/s taken, IV site patent, informed, new med orders given, will re-medicate as ordered and prepare for admission.
[2019-05-27] MEDS ORDERED: cefTRIAXone 1 GM in NS 55 ML IVPB ONE (23:30)
[2019-05-27] MEDS ORDERED: Hydromorphone 0.5mg/0.5ml inj IVP ONE (23:30)
--- NOTE | 2019-05-27 23:33 | Diagnostic Imaging Report ---
Indication: Abdominal pain Technique: CT of the abdomen and pelvis utilizing automated exposure control with intravenous contrast. Venous scanning performed. Axial, sagittal and coronal reformats presented. CT dose: Total DLP 1310 mGycm; CTDI vol 1.4 mGy Comparison: 07/02/2018 Findings: Dependent atelectasis noted in the lung bases. Heart size within normal limits. No pericardial effusion. Hepatic contour is smooth. No focal hepatic mass lesion identified on this single phase exam. Hepatic veins and portal veins appear patent. There are no CT evident gallstones or pericholecystic inflammatory changes. No biliary ductal dilatation. Spleen, adrenal glands unremarkable. Pancreas is unremarkable. No peripancreatic inflammatory changes or fluid collections. Pancreatic enhancement is uniform. Subcentimeter low-attenuation lesions noted in the kidney which are too small for definitive characterization but may represent cysts. There is no hydronephrosis, urinary tract stone or perinephric stranding bilaterally. Bladder is unremarkable. Mild prominence of the prostate is again noted. The stomach is distended with fluid. There is some thickening of the wall of the gastric antrum with some adjacent small foci of gas. Fluid is also noted within multiple small bowel loops with equivocal wall hyperenhancement. Together findings may suggest a gastroenteritis. Mild prominence of the small bowel loops may suggest associated ileus. No free intraperitoneal air or fluid. There is a small hiatal hernia. Appendix is normal. There is colonic diverticulosis without evidence of acute diverticulitis. Abdominal aorta is normal in caliber with scattered atherosclerotic calcifications. A approximately 12 mm partially calcified splenic artery aneurysm is again noted, stable in size compared to the prior exam. There are likely postsurgical changes of the midline anterior abdominal wall, similar to the prior exam. No subcutaneous fluid collection. Bilateral fat-containing inguinal hernias are noted. There are degenerative changes in the spine. No acute osseous abnormality. IMPRESSION: * Fluid distention of the stomach and small bowel loops with some equivocal wall hyperenhancement. Findings may suggest a gastroenteritis in the appropriate clinical setting. * Mild distension/prominence of some fluid-filled small bowel loops may be related to ileus is seen with gastroenteritis. * Some wall thickening in the stomach may suggest ulcer disease. Aeration with endoscopy recommended. * Small hiatal hernia. * Normal appendix. No free intraperitoneal air or fluid. * Prostatomegaly. * Stable 6 calcified 12 mm splenic artery aneurysm. * Colonic diverticulosis without evidence of acute diverticulitis. Additional findings as above. The CT scanner at [facility] is accredited by the [employer] and the scans are performed using protocols designed to limit radiation exposure to as low as reasonably achievable to attain images of sufficient resolution adequate for diagnostic evaluation.
--- NOTE | 2019-05-27 23:35 | NUR ---
ED Nurse Note: Pt room being changed, report given to MARA Griggs, NAD Noted.
[2019-05-27 23:45] VITALS: BP 135/80
--- NOTE | 2019-05-27 23:45 | NUR ---
ED Nurse Note: Report received from MARA Quijano. pt VSS on monitor. no acute distress is noted.
[2019-05-28 01:59] VITALS: BP 128/86
--- NOTE | 2019-05-28 03:13 | NUR ---
ED Nurse Note: Report given to khai serrato from [facility]
--- NOTE | 2019-05-28 03:17 | NUR ---
ED Nurse Note: report given to MARA Méndez
--- NOTE | 2019-05-28 03:18 | NUR ---
ED Nurse Note: received report from MARA Boyd and assumed care, vss, resp even and unlabored on RA, sinus rhythm on cardiac exercise physiologist. will cont monitor
[2019-05-28 03:30] VITALS: BP 127/67
[2019-05-28 04:15] VITALS: BP 132/68
--- NOTE | 2019-05-28 04:15 | NUR ---
ED Nurse Note: EMS at the bedside for transport, pt vss, resp even and unlabored on RA, iv intact and patent, all belongings endorsed to EMT staff, report given to [facility] and endorsed care. pt going to [facility] for continuity of care.
--- NOTE | 2019-05-28 16:47 | Diagnostic Imaging Report ---
Indication: Chest and abdominal pain Technique: XRAY Chest 1v Comparison: None Findings: Heart size and mediastinal contours are within normal limits for AP technique. There is no focal airspace consolidation, pneumothorax or pleural effusion. Osseous structures demonstrate no acute abnormality. No evidence of free air under the diaphragms. Impression: No radiographic evidence of acute cardiopulmonary disease.
--- NOTE | 2019-06-05 13:39 | Cardiology Report ---
APPROVED REPORT EKG Measurement Heart [id number] <Conclusion> Normal sinus rhythm Normal ECG
== END 2019-05-28 04:15 | disposition short-term general hospital (02) ==
LOC: EMR 21:05 → EDBEDREQSVC 05-28 01:46 → EMR 05-28 04:15
DX: K85.00 Idiopathic acute pancreatitis without necrosis or infection (principal); R11.2 Nausea with vomiting, unspecified; N30.00 Acute cystitis without hematuria; I10 Essential (primary) hypertension; K44.9 Diaphragmatic hernia without obstruction or gangrene
CPT/HCPCS: 36415; 71045; 74177; 80053; 81003; 83690; 84484; 85007; 85025; 85610; 85730; 86850; 86900; 86901; 87086; 93005; 96361; 96365; 96375; 96376; J0696; J1170; J2270; J2405; J7030; Q9967; S0028; Z7502; 99285

== ENCOUNTER 2019-07-14 05:37 | Emergency (ER) | payer MEDICAID ==
[~2019-07-14] VITALS: Ht 172.7 cm; Wt 83.9 kg
[~2019-07-14 05:37] MED LIST changes: +B COMPLEX WITH1 EACH ORAL; +[UNRECOGNIZED DRUG - CODE] TP
[2019-07-14 06:06] VITALS: BP 167/95
--- NOTE | 2019-07-14 06:06 | NUR ---
ED Nurse Note: Pt walked into ED c/o right eye pain and irriation since yesterday afternoon. Pt reports unknown cause. Noted with red, swollen eye with clear drainage. Denies blurry vision. Vison 20/25 bilateral.
--- NOTE | 2019-07-14 06:10 | NUR ---
ED Nurse Note: ERMD at bedside.
[2019-07-14] MEDS ORDERED: Tetracaine 0.5% Opth 4ml Soln ONE (06:11)
[2019-07-14] MEDS ORDERED: Fluorescein Strips ONE (06:11)
[2019-07-14] MEDS ORDERED: Tetracaine 0.5% Opth 4ml Soln LEFT EYE ONE (06:15)
[2019-07-14] MEDS ORDERED: Tetracaine 0.5% Opth 4ml Soln RIGHT EYE ONE (06:15)
[2019-07-14] MEDS ORDERED: Fluorescein Strips BOTH EYES ONE (06:15)
[2019-07-14] MEDS ORDERED: ARTIFICIAL TEAR15 ML BOTH EYES (06:19)
--- NOTE | 2019-07-14 06:19 | Emergency Room Report ---
History of Present Illness General Chief Complaint: Eye Problems Source: Patient Present Illness HPI 59-year-old male presents with bilateral eye redness, runny nose x1 day, no change in vision no headaches no known aggravating relieving factors severity is mild, constant patient presents for evaluation he denies any pus or drainage from the eyes Allergies: Coded Allergies: No Known Allergies (Unverified , 07/15/18) Patient History Past Medical History: see triage record Reviewed Nursing Documentation: PMH: Agreed; PSxH: Agreed Nursing Documentation-PMH Hx Cardiac Problems: Yes Hx Hypertension: Yes Hx Cancer: No Hx Gastrointestinal Problems: Yes Hx Neurological Problems: No Review of Systems All Other Systems: negative except mentioned in HPI Physical Exam Vital Signs Date Time Temp Pulse Resp B/P (MAP) Pulse Ox O2 Delivery O2 Flow Rate FiO2 07/14/19 06:00 97.9 92 16 167/95 (119) 95 Room Air General Appearance: well appearing, no apparent distress Head: normocephalic, atraumatic Eyes: bilateral eye PERRL, bilateral eye fluoroscene uptake - No fluorescein uptake, bilateral eye EOMI, bilateral eye other - Patient with injected conjunctiva bilaterally ENT: hearing grossly normal, normal voice Neck: full range of motion, supple Respiratory: no respiratory distress, speaking full sentences Musculoskeletal: gait/station normal Neurologic: alert, normal gait Psychiatric: mood/affect normal Skin: no rash Medical Decision Making Diagnostic Impression: Primary Impression: Viral conjunctivitis of both eyes ER Course 59-year-old male presents most likely with viral bilateral conjunctivitis, given history of congestion, runny nose visual field exam intact, EOMI PERRLA, no fluorescein uptake Disposition home with return precautions Last Vital Signs Date Time Temp Pulse Resp B/P (MAP) Pulse Ox O2 Delivery O2 Flow Rate FiO2 07/14/19 06:06 97.9 92 16 167/95 95 Room Air Disposition: HOME, SELF-CARE Condition: Stable Scripts Dextran 70/Hypromellose (ARTIFICIAL TEARS EYE DROPS*) 15 Ml Drops 1 DROP BOTH EYES QID PRN for EYE DRYNESS, #15 ML 0 Refills Prov: Anuj Fermin MD 07/14/19 Referrals: [facility],REFERRING (PCP) Patient Instructions: Viral Conjunctivitis Additional Instructions: The patient was provided with discharge instructions, notified to follow-up with a primary care doctor and or specialist in the next 24-48 hours, and to return to the ED if they have worsening of their symptoms. Please note that this report is being documented using [employer] technology. This can lead to erroneous entry secondary to incorrect interpretation by the dictating instrument. FOLLOW-UP WITH CORRECTIONAL MAINTENANCE TECHNICIAN Anuj Fermin MD Jul 14, 2019 06:19
[2019-07-14 06:22] VITALS: BP 167/95
--- NOTE | 2019-07-14 06:22 | NUR ---
ED Nurse Note: Pt cleared by ERMD for discharge. DC instructions/prescription was given and explained to pt and verbalized understanding of teachings. All medical deviecs such as ID band removed. Pt is AAO x4, ambulatory and left with all personal belongings.
== END 2019-07-14 06:22 | disposition home or self-care (01) ==
LOC: EMR 06:09
DX: B30.9 Viral conjunctivitis, unspecified (principal); I11.9 Hypertensive heart disease without heart failure
CPT/HCPCS: 99283